=== PATIENT | male | born 1955 | race Caucasian/White ===

== ENCOUNTER 2019-02-27 09:12 | Inpatient (IN) | payer BC ==
[~2019-02-27] VITALS: Ht 170.2 cm; Wt 105.2 kg
[~2019-02-27 09:12] MED LIST: AZITHROMYCIN 250 MG TAB PO SCH
[2019-02-27] MEDS ORDERED: NO MED LIST (09:22)
[2019-02-27 10:45] LABS: BASO % 0.1 % (0.0-1.0); EOS % 0.4 % (0.0-3.0); HEMATOCRIT 35.9 % (42.0-52.0); HEMOGLOBIN 12.9 g/dl (13.5-17.5); LYMPH # 1.3 10^3/uL (1.5-4.5); LYMPH % 11.9 % (24.0-44.0); MEAN CORPUSCULAR HGB CONC 35.9 g/dl (32.0-36.5); MEAN CORPUSCULAR VOLUME 89.1 fl (80.0-96.0); MONO # 0.8 10^3/uL (0.0-0.8); MONO % 7.9 % (0.0-5.0); NEUTROPHILS # 8.5 10^3/uL (1.8-7.7); PLATELET COUNT, AUTOMATED 247 10^3/uL (150-450); RED BLOOD COUNT 4.03 10^6/uL (4.30-6.10); WHITE BLOOD COUNT 10.7 10^3/uL (4.0-10.0)
[2019-02-27] MEDS ORDERED: BISO10TA3 PO (10:49)
[2019-02-27] MEDS ORDERED: IRBE300T10 PO (10:49)
[2019-02-27] MEDS ORDERED: CICL0.7739 TOP (10:49)
[2019-02-27] MEDS ORDERED: AZIT500T2 PO (10:49)
[2019-02-27] MEDS ORDERED: TIMO0.5S39 OU (10:49)
[2019-02-27] MEDS ORDERED: LISI10TA4 PO (10:49)
[2019-02-27] MEDS ORDERED: ASPI81TA85 PO (10:49)
[2019-02-27] MEDS ORDERED: PRED10TA2 PO (10:49)
[2019-02-27] MEDS ORDERED: GEMF600T5 PO (10:49)
[2019-02-27] MEDS ORDERED: AUGM875T28 PO (10:49)
[2019-02-27] MEDS ORDERED: JANU100T PO (10:49)
[2019-02-27] MEDS ORDERED: BIMA01SOL OU (10:49)
[2019-02-27] MEDS ORDERED: AMLO10TA5 PO (10:49)
[2019-02-27] MEDS ORDERED: METF10004 PO (10:50)
[2019-02-27] MEDS: IPRATROPIUM 0.5MG/ALBUTEROL 2.5MG INH SOL UD 3ML (DUONEB)(J7620) NEB PRN ×2 (10:58→20:53)
[2019-02-27 11:08] LABS: INFLUENZA A AMPLIFICATION NEGATIVE (NEGATIVE); INFLUENZA B AMPLIFICATION NEGATIVE (NEGATIVE)
--- NOTE | 2019-02-27 11:11 | REP ---
CHEST X-RAY: TWO VIEWS. HISTORY: Dyspnea and cough. FINDINGS: There is an 11 mm nodular density projecting in the retrosternal clear space on the lateral film. This is not seen on the frontal radiograph. It may be calcified but this cannot be stated with confidence. Lung powell are otherwise clear. Pleural angles are sharp. Heart size is normal. There are old rib fractures on the right inferiorly. Pulmonary vasculature is not increased. There are degenerative changes in the thoracic spine. IMPRESSION: Possible upper lobe nodule visible only on lateral radiograph. Consider chest CT. Old healed rib fractures on the right. Otherwise no acute disease. Electronically Signed by Gianni Colon MD 02/27/2019 08:31 P
[2019-02-27 11:58] LABS: ALBUMIN 3.9 GM/DL (3.2-5.2); ALT/SGPT 27 U/L (12-78); BILIRUBIN,DIRECT 0.2 MG/DL (0.0-0.2); BILIRUBIN,TOTAL 0.4 MG/DL (0.2-1.0); BLOOD UREA NITROGEN 19 MG/DL (7-18); CALCIUM LEVEL 8.2 MG/DL (8.8-10.2); CARBON DIOXIDE LEVEL 21 MEQ/L (21-32); CHLORIDE LEVEL 83 MEQ/L (98-107); CPK CREATINE PHOSPHOKINASE 650 U/L (39-308); FREE T4 1.23 NG/DL (0.76-1.46); GLOMERULAR FILTRATION RATE > 60.0 (>49); GLUCOSE, FASTING 120 MG/DL (70-100); MB/CK RELATIVE INDEX 1.09 (< OR =4); NT-PRO BNP 218 PG/ML (<125); POTASSIUM SERUM 4.4 MEQ/L (3.5-5.1); SODIUM LEVEL 116 MEQ/L (136-145); TOTAL PROTEIN 6.7 GM/DL (6.4-8.2); TROPONIN I < 0.02 NG/ML (< 0.10)
[2019-02-27] MEDS ORDERED: NS 1,000 ML IV SCH (12:15)
[2019-02-27 13:17] LABS: OSMOLALITY SERUM 244 MOSM/KG (280-301)
[2019-02-27] MEDS ORDERED: GLUCOSE 4 GM CHEW TABLET PO PRN (14:00)
[2019-02-27] MEDS ORDERED: GLUCAGON FOR INJ 1 MG VIAL (J1610) SC PRN (14:00)
[2019-02-27] MEDS ORDERED: DEXTROSE 50% 50 ML SYRINGE IV PRN (14:00)
[2019-02-27] MEDS ORDERED: IPRATROPIUM 0.5MG/ALBUTEROL 2.5MG INH SOL UD 3ML (DUONEB)(J7620) NEB PRN (14:00)
[2019-02-27] MEDS: BUDESONIDE 0.5 MG/2 ML INHALATION SUSPENSION INH SCH ×2 (15:12→20:53)
[2019-02-27] MEDS: ALBUTEROL SULFATE 2.5 MG/0.5 ML INH NEB SOLN NEB SCH (15:12)
[2019-02-27] MEDS: ENOXAPARIN 40 MG/0.4 ML SYRINGE (J1650) SC SCH (16:18)
[2019-02-27 16:36] VITALS: BP 156/92
[2019-02-27 16:46] LABS: BLOOD UREA NITROGEN 19 MG/DL (7-18); CREATININE FOR GFR 0.81 MG/DL (0.70-1.30); GLOMERULAR FILTRATION RATE > 60.0 (>49); GLUCOSE, FASTING 124 MG/DL (70-100)
[2019-02-27 16:47] LABS: CALCIUM LEVEL 8.3 MG/DL (8.8-10.2); CARBON DIOXIDE LEVEL 24 MEQ/L (21-32); CHLORIDE LEVEL 82 MEQ/L (98-107); POTASSIUM SERUM 4.8 MEQ/L (3.5-5.1); SODIUM LEVEL 115 MEQ/L (136-145)
[2019-02-27] MEDS ORDERED: SODIUM CHLORIDE 3% 100 ML IV SCH (17:00)
--- NOTE | 2019-02-27 17:10 | REP ---
REASON FOR EXAM: Followup plain radiographic finding of possible right upper lobe nodule seen only on the lateral view. The lack of intravenous contrast for today's CT decreases the sensitivity. There is no mediastinal or hilar adenopathy. There are no pleural or pericardial effusions. The imaged upper abdomen is within normal limits. The imaged osseous structures are within normal limits for the patient's age. Old healed right sided rib fractures are noted. Evaluation of the lung powell show the calcified nodule in the anterior segment of the right upper lobe which measures a centimeter and is responsible for the plain film finding. There are no non-calcified nodules, mass or abnormal opacities. IMPRESSION: Right upper lobe calcified granuloma as described above. Electronically Signed by Korey Sagastume DO 02/28/2019 11:54 A
--- NOTE | 2019-02-27 17:23 | HPEPDOC ---
General Date of Admission Feb 27, 2019 at 13:40 Chief Complaint The patient is a 63-year-old male admitted with a reason for visit of Hyponatre gallo. Source: Patient Exam Limitations: No limitations Associated Symptoms: Cough History of Present Illness 63 year old male with PMH of Diabetes, hypertension, hyperlipidemia, glaucoma presented to the ED for abnormal blood work sent from the PMD's office. Patient says that he has been having a cold for the past 3 to 4 days with dry cough and sinus congestion so went to see his PMD yesterday. He was give augmentin, azithromycin and prednisone and blood work was done. He took 2 doses of each of the medications. This morning he was called by his PMD's office and was tole to come to the ED for low sodium values. Sodium at the PMD's office was 119 yesterday. He was never told that he had any problem with sodium during his previous blood works. He does admit that he likes to drink water. He denies any alcohol usage. He denies any diarrhea or vomiting. In [facility] ED his sodium was found to be 116 so was admitted to the hospitalist service for hyponatremia. Home Medications Scheduled Amlodipine Besylate (Amlodipine Besylate) 10 Mg Tablet, 10 MG PO QHS, (Reported) Amoxicillin/Potassium Clav (Augmentin 875-125 Tablet) 1 Each Tablet, 875 MG PO BID, (Reported) STARTED 02/26 FOR 10 DAYS Aspirin (Aspir 81) 81 Mg Tablet.dr, 81 MG PO QHS, (Reported) Azithromycin (Azithromycin) 500 Mg Tablet, 500 MG PO DAILY, (Reported) STARTED 02/26 FOR 3 DAYS Bimatoprost (Lumigan) 0.01% 2.5ML Drops, 1 DROP OU QHS, (Reported) Bisoprolol/Hydrochlorothiazide (Bisoprolol-Hctz 10-6.25 mg Tab) 1 Each Tablet, 1 TAB PO QHS, (Reported) Ciclopirox Olamine (Ciclopirox) 15 Gm Cream..g., 1 APLCT TOP BID, (Reported) APPLY TO FEET Gemfibrozil (Gemfibrozil) 600 Mg Tablet, 600 MG PO BID, (Reported) Irbesartan (Irbesartan) 300 Mg Tablet, 300 MG PO QHS, (Reported) Lisinopril (Lisinopril) 10 Mg Tablet, 20 MG PO QHS, (Reported) Metformin HCl (Metformin HCl) 1,000 Mg Tablet, 1,000 MG PO BID, (Reported) Prednisone (Prednisone) 10 Mg Tablet, 20 MG PO DAILY, (Reported) STARTED 02/26 FOR 5 DAYS Sitagliptin Phosphate (Januvia) 100 Mg Tablet, 100 MG PO QHS, (Reported) Timolol Maleate (Timolol Maleate) 0.5% 5ML Drop.daily, 1 DROP OU BID, (Reported) Allergies Coded Allergies: No Known Allergies (Unverified , 02/27/19) Past Medical History Medical History Diabetes, Hypertension, Hyperlipidemia. Surgical History None Social History * Smoker: Denies Alcohol: Denies Drugs: denies Review of Systems Constitutional: Denies: Chills, Fever, Night Sweats Eyes: Denies: Pain, Vision change ENT: Reports: Sinus Congestion, Sore Throat Skin: Denies: Rash, Lesions, Breakdown Pulmonary: Reports: Dyspnea, Cough Cardiovascular: Reports: Orthopnea; Denies: Chest Pain, Palpitations, Paroxysmal Noc. Dyspnea, Lt Headedness Gastrointestinal: Denies: Nausea, Vomiting, Abdominal Pain, Diarrhea Genitourinary: Denies: Dysuria, Frequency, Incontinence, Retention Musculoskeletal: Denies: Neck Pain, Back Pain, Joint Pain, Muscle Pain, Spasms Physical Examination General Exam: Positive: Alert, Cooperative, No Acute Distress Eye Exam: Positive: PERRLA, Conjunctiva & lids normal, EOMI; Negative: Sclera icteric ENT Exam: Positive: Atraumatic, Mucous membr. moist/pink Chest Exam: Positive: Rhonchi, Wheezing Heart Exam: Positive: Rate Normal, Bradycardic, Regular Rhythm, Normal S1; Negative: Irregular Rhythm, Normal S2, Gallops, Murmurs, Rubs Abdomen Exam: Positive: Normal bowel sounds, Soft, Other (obese, protuberant); Negative: Tenderness, Hepatospenomegaly Extremity Exam: Positive: Edema (minimal trace edema.), Normal pulses; Negative: Clubbing, Cyanosis Skin Exam: Positive: Nl turgor and temperature; Negative: Breakdown, Lesion Neuro Exam: Positive: Normal Speech Psych Exam: Positive: Mental status NL, Memory Intact, Oriented x 3 Vital Signs Vital Signs Date Time Temp Pulse Resp B/P (MAP) Pulse Ox O2 Delivery O2 Flow Rate FiO2 4/23/19 15:31 98.0 18 130/61 (84) 02/27/19 15:30 55 97 02/27/19 09:14 Room Air Laboratory Data Labs 24H Laboratory Tests 2 02/27/19 09:48: Urine Random Osmolality 888H, Urine Random Creatinine 122.0, Urine Random Sodium 89 02/27/19 10:04: Immature Granulocyte % (Auto) 0.7, White Blood Count 10.7H, Red Blood Count 4.03L, Hemoglobin 12.9L, Hematocrit 35.9L, Mean Corpuscular Volume 89.1, Mean Corpuscular Hemoglobin 32.0, Mean Corpuscular Hemoglobin Concent 35.9, Red Cell Distribution Width 12.5, Platelet Count 247, Neutrophils (%) (Auto) 79.0H, Lymphocytes (%) (Auto) 11.9L, Monocytes (%) (Auto) 7.9H, Eosinophils (%) (Auto) 0.4, Basophils (%) (Auto) 0.1, Neutrophils # (Auto) 8.5H, Lymphocytes # (Auto) 1.3L, Monocytes # (Auto) 0.8, Eosinophils # (Auto) 0.0, Basophils # (Auto) 0.0, Nucleated Red Blood Cells % (auto) 0.0, Anion Gap 12, Glomerular Filtration Rate > 60.0, Osmolality 244L, Lactic Acid Level 3.1*H, Uric Acid 3.0L, Calcium Level 8.2L, Aspartate Amino Transf (AST/SGOT) 21, Alanine Aminotransferase (ALT/SGPT) 27, Alkaline Phosphatase 45, Total Bilirubin 0.4, Direct Bilirubin 0.2, Total Creatine Kinase 650H, Creatine Kinase MB 7.0H, Creatine Kinase MB Relative Index 1.09, Troponin I < 0.02, TS-Oup-U-Type Natriuretic Peptide 218H, Total Protein 6.7, Albumin 3.9, Albumin/Globulin Ratio 1.39, Thyroid Stimulating Hormone (TSH) 1.350, Free Thyroxine 1.23 02/27/19 10:18: Influenza Type A (RT-PCR) NEGATIVE, Influenza Type B (RT-PCR) NEGATIVE 02/27/19 15:54: Anion Gap 9, Glomerular Filtration Rate > 60.0, Calcium Level 8.3L, Lactic Acid Followup at 4 Hours 1.4, Blood Urea Nitrogen 19H, Creatinine 0.81, Sodium Level 115*L, Potassium Level 4.8, Chloride Level 82L, Carbon Dioxide Level 24 CBC/BMP Laboratory Tests 02/27/19 10:04 Red Blood Count 4.03 L, Mean Corpuscular Volume 89.1, Mean Corpuscular Hemoglobin 32.0, Mean Corpuscular Hemoglobin Concent 35.9, Red Cell Distribution Width 12.5, Neutrophils (%) (Auto) 79.0 H, Lymphocytes (%) (Auto) 11.9 L, Monocytes (%) (Auto) 7.9 H, Eosinophils (%) (Auto) 0.4, Basophils (%) (Auto) 0.1, Neutrophils # (Auto) 8.5 H, Lymphocytes # (Auto) 1.3 L, Monocytes # (Auto) 0.8, Eosinophils # (Auto) 0.0, Basophils # (Auto) 0.0 02/27/19 15:54 Calcium Level 8.3 L Microbiology Microbiology 02/27/19 Blood Culture, Received Pending 02/27/19 Blood Culture, Received Pending 02/27/19 Gram Stain, Received Pending 02/27/19 Sputum Culture, Received Pending Assessment/Plan 63 year old male with PMH of Diabetes, hypertension, hyperlipidemia, glaucoma presented to the ED for abnormal blood work sent from the PMD's office. Patient says that he has been having a cold for the past 3 to 4 days with dry cough and sinus congestion so went to see his PMD yesterday. He was give augmentin, azithromycin and prednisone and blood work was done. He took 2 doses of each of the medications. This morning he was called by his PMD's office and was tole to come to the ED for low sodium values. Sodium at the PMD's office was 119 yesterday. He was never told that he had any problem with sodium during his previous blood works. He does admit that he likes to drink water. He denies any alcohol usage. He denies any diarrhea or vomiting. In [facility] ED his sodium was found to be 116 so was admitted to the hospitalist service for hyponatremia. Euvolemic hyponatremia with high urine osmolality and high urine sodium and low uric acid in blood indicates high probability for SIADH on the back ground of being on lisinopril, irbesartan and HCTZ. patient also has a tendency to drink excess water will put the patient on fluid restriction, regular diet consult Nephrology will probably need hypertonic saline BMP Q 3 to 4 hours. Respiratory tract infection / Acute bronchitis with post infectious bronchospasm possibly viral, may have secondary baceterial infection also. flu is negative will check resp panel continue budesonide, albuterol will not give prednisone at present. Diabetes will continue januvia, hold metformin will give lispro as per sliding scale Glaucoma continue home eye drops. Hypertension continue amlodipine and bisoprolol for now will hold ACEI and ARBs. Hyperlipidemia continue home meds Obesity will place patient on GILLIAN protocol Possible lung nodule seen on CXR will get CT chest. DVT prophylaxis ordered. Plan / VTE VTE Prophylaxis Ordered?: Yes SONNY DUKE MD Feb 27, 2019 17:23
[2019-02-27] MEDS: HumaLOG INSULIN (NovoLOG) PER UNIT SC SCH ×2 (18:43→20:20)
[2019-02-27 19:23] VITALS: BP 154/94
[2019-02-27 19:26] LABS: GLUCOSE, FASTING 109 MG/DL (70-100)
[2019-02-27 19:27] LABS: BLOOD UREA NITROGEN 17 MG/DL (7-18); CREATININE FOR GFR 0.74 MG/DL (0.70-1.30); GLOMERULAR FILTRATION RATE > 60.0 (>49)
[2019-02-27 19:28] LABS: CARBON DIOXIDE LEVEL 23 MEQ/L (21-32); CHLORIDE LEVEL 82 MEQ/L (98-107); POTASSIUM SERUM 4.5 MEQ/L (3.5-5.1); SODIUM LEVEL 114 MEQ/L (136-145)
[2019-02-27 20:00] VITALS: BP 139/71
[2019-02-27] MEDS: ASPIRIN 81 MG ENTERIC TAB PO SCH (20:13)
[2019-02-27] MEDS: amLODIPine 10 MG TAB PO SCH (20:14)
[2019-02-27] MEDS: GEMFIBROZIL 600 MG TAB PO SCH (20:14)
[2019-02-27] MEDS: BISOPROLOL FUMARATE 10 MG TAB PO SCH (20:15)
[2019-02-27] MEDS: SITagliptin 50 MG TAB (JANUVIA) PO SCH (20:15)
[2019-02-27 22:00] VITALS: BP 115/70
--- NOTE | 2019-02-27 23:19 | ECGEPIP ---
Stationary ECG Study [facility] - ED Test Date: 2019-02-27 Pat Name: SUDHIR DELGADO Department: Room: - Gender: M Education Paraprofessional: : [id number] Requested By: UTE Canas PA-C Order Number: [id number] Reading MD: Gus Aguila Measurements Intervals [place] Rate: 57 P: 25 RI: 136 QRS: 54 QRSD: 96 T: 61 QT: 415 QTc: 407 Interpretive Statements SINUS BRADYCARDIA WITH SINUS ARRHYTHMIA LOW QRS VOLTAGE IN PRECORDIAL LEADS BENIGN EARLY REPOLARIZATION NO PRIORS FOR COMPARISON Electronically Signed On 02-27-2019 23:18:43 EDT by Gus Aguila
[2019-02-28] VITALS (9 sets, daily range): BP systolic 113–156; BP diastolic 58–77
[2019-02-28] MEDS: SODIUM CHLORIDE 1 GM TAB PO SCH ×3 (02:52→21:44)
[2019-02-28 04:01] LABS: BASO % 0.1 % (0.0-1.0); EOS % 0.4 % (0.0-3.0); HEMATOCRIT 35.4 % (42.0-52.0); HEMOGLOBIN 12.6 g/dl (13.5-17.5); LYMPH # 1.9 10^3/uL (1.5-4.5); LYMPH % 23.4 % (24.0-44.0); MEAN CORPUSCULAR HEMOGLOBIN 31.5 pg (27.0-33.0); MEAN CORPUSCULAR HGB CONC 35.6 g/dl (32.0-36.5); MEAN CORPUSCULAR VOLUME 88.5 fl (80.0-96.0); MONO % 11.8 % (0.0-5.0); NEUTROPHILS # 5.2 10^3/uL (1.8-7.7); NEUTROPHILS % 64.1 % (36.0-66.0); PLATELET COUNT, AUTOMATED 220 10^3/uL (150-450); WHITE BLOOD COUNT 8.1 10^3/uL (4.0-10.0)
[2019-02-28 04:33] LABS: BLOOD UREA NITROGEN 18 MG/DL (7-18); CALCIUM LEVEL 7.8 MG/DL (8.8-10.2); CARBON DIOXIDE LEVEL 25 MEQ/L (21-32); CHLORIDE LEVEL 84 MEQ/L (98-107); CREATININE FOR GFR 0.72 MG/DL (0.70-1.30); GLOMERULAR FILTRATION RATE > 60.0 (>49); GLUCOSE, FASTING 122 MG/DL (70-100); POTASSIUM SERUM 3.7 MEQ/L (3.5-5.1); SODIUM LEVEL 117 MEQ/L (136-145)
[2019-02-28] MEDS ORDERED: SODIUM CHLORIDE 3% 100 ML IV ONE (05:00)
[2019-02-28] MEDS ORDERED: FUROSEMIDE 20 MG/2 ML VIAL (J1940) IV ONE (08:00)
[2019-02-28] MEDS: ENOXAPARIN 40 MG/0.4 ML SYRINGE (J1650) SC SCH (08:08)
[2019-02-28] MEDS: AZITHROMYCIN 250 MG TAB PO SCH (08:08)
[2019-02-28] MEDS: HumaLOG INSULIN (NovoLOG) PER UNIT SC SCH ×4 (08:09→21:00)
[2019-02-28] MEDS: GEMFIBROZIL 600 MG TAB PO SCH ×2 (08:09→21:43)
[2019-02-28] MEDS: ALBUTEROL SULFATE 2.5 MG/0.5 ML INH NEB SOLN NEB SCH ×4 (08:43→20:22)
[2019-02-28] MEDS: BUDESONIDE 0.5 MG/2 ML INHALATION SUSPENSION INH SCH ×2 (08:43→20:22)
[2019-02-28 09:44] LABS: CORTISOL AM 30.3 UG/DL (4.3-22.4)
--- NOTE | 2019-02-28 10:53 | IPNPDOC ---
Subjective Date Seen The patient was seen on 02/28/19. Subjective Chief Complaint/HPI Abnormal lab work, cough, wheezing Events since last encounter Patient had a good night , did not need any oxygen overnight. Does not complain of any SOb. Does have bouts of dry hacking cough. No fever of chills, no nausea or vomiting or diarrhea. Objective Physical Examination General Exam: Positive: Alert, Cooperative, No Acute Distress Eye Exam: Positive: PERRLA, Conjunctiva & lids normal, EOMI; Negative: Sclera icteric ENT Exam: Positive: Atraumatic, Mucous membr. moist/pink Chest Exam: Positive: Rhonchi, Wheezing Heart Exam: Positive: Rate Normal, Bradycardic, Regular Rhythm, Normal S1; Negative: Irregular Rhythm, Normal S2, Gallops, Murmurs, Rubs Abdomen Exam: Positive: Normal bowel sounds, Soft, Other (obese, protuberant); Negative: Tenderness, Hepatospenomegaly Extremity Exam: Positive: Edema (minimal trace edema.), Normal pulses; Negative: Clubbing, Cyanosis Skin Exam: Positive: Nl turgor and temperature; Negative: Breakdown, Lesion Neuro Exam: Positive: Normal Speech Psych Exam: Positive: Mental status NL, Memory Intact, Oriented x 3 A-FIB/CHADSVASC A-FIB History Current/History of A-Fib/PAF?: No Assessment /Plan Assessment 63 year old male with PMH of Diabetes, hypertension, hyperlipidemia, glaucoma presented to the ED for abnormal blood work sent from the PMD's office. Patient says that he has been having a cold for the past 3 to 4 days with dry cough and sinus congestion so went to see his PMD yesterday. He was give augmentin, azithromycin and prednisone and blood work was done. He took 2 doses of each of the medications. This morning he was called by his PMD's office and was tole to come to the ED for low sodium values. Sodium at the PMD's office was 119 yesterday. He was never told that he had any problem with sodium during his previous blood works. He does admit that he likes to drink water. He denies any alcohol usage. He denies any diarrhea or vomiting. In [facility] ED his sodium was found to be 116 so was admitted to the hospitalist service for hyponatremia. Euvolemic hyponatremia Sodium up from 116 to 119 this am. with high urine osmolality and high urine sodium and low uric acid in blood indicates high probability for SIADH on the back ground of being on lisinopril, irbesartan and HCTZ. cortisol and TSH normal. continue on fluid restriction, regular diet On lasix, oral salt tabs and hypertonic saline. BMP Q 3 to 4 hours. Respiratory tract infection / Acute bronchitis with post infectious bronchospasm RSV infection may have secondary bacterial infection also. flu is negative continue budesonide, albuterol will give prednisone Diabetes will continue januvia, hold metformin will give lispro as per sliding scale Glaucoma continue home eye drops. Hypertension continue amlodipine and bisoprolol for now will hold ACEI and ARBs. Hyperlipidemia continue home meds Obesity will place patient on GILLIAN protocol Lung nodule right upper lobe calcified granuloma 1 cm in size. DVT prophylaxis ordered. Plan/VTE VTE Prophylaxis Ordered?: Yes VS, I&O, 24H, Fishbone Vital Signs/I&O Vital Signs Date Time Temp Pulse Resp B/P (MAP) Pulse Ox O2 Delivery O2 Flow Rate FiO2 02/28/19 08:43 60 02/28/19 06:00 20 131/63 (85) 96 02/28/19 04:00 97.2 02/27/19 09:14 Room Air I&O- Last 24 Hours up to 6 AM 02/28/19 06:00 Intake Total 640 ml Output Total 600 ml Balance 40 ml Laboratory Data 24H LABS Laboratory Tests 2 02/27/19 15:54: Anion Gap 9, Glomerular Filtration Rate > 60.0, Lactic Acid Followup at 4 Hours 1.4, Blood Urea Nitrogen 19H, Creatinine 0.81, Sodium Level 115*L, Potassium Level 4.8, Chloride Level 82L, Carbon Dioxide Level 24, Calcium Level 8.3L 02/27/19 17:51: Bedside Glucose (Misc Panel) 131H 02/27/19 18:50: Anion Gap 9, Glomerular Filtration Rate > 60.0, Blood Urea Nitrogen 17, Creatinine 0.74, Sodium Level 114*L, Potassium Level 4.5, Chloride Level 82L, Carbon Dioxide Level 23, Calcium Level 8.0L 02/27/19 20:20: Bedside Glucose (Misc Panel) 162H 02/28/19 03:54: Immature Granulocyte % (Auto) 0.2, White Blood Count 8.1, Red Blood Count 4.00L, Hemoglobin 12.6L, Hematocrit 35.4L, Mean Corpuscular Volume 88.5, Mean Corpuscular Hemoglobin 31.5, Mean Corpuscular Hemoglobin Concent 35.6, Red Cell Distribution Width 12.3, Platelet Count 220, Neutrophils (%) (Auto) 64.1, Lymphocytes (%) (Auto) 23.4L, Monocytes (%) (Auto) 11.8H, Eosinophils (%) (Auto) 0.4, Basophils (%) (Auto) 0.1, Neutrophils # (Auto) 5.2, Lymphocytes # (Auto) 1.9, Monocytes # (Auto) 1.0H, Eosinophils # (Auto) 0.0, Basophils # (Auto) 0.0, Nucleated Red Blood Cells % (auto) 0.0, Anion Gap 8, Glomerular Filtration Rate > 60.0, Blood Urea Nitrogen 18, Creatinine 0.72, Sodium Level 117*L, Potassium Level 3.7, Chloride Level 84L, Carbon Dioxide Level 25, Calcium Level 7.8L 02/28/19 07:00: Cortisol AM Sample 30.3H CBC/BMP Laboratory Tests 02/27/19 15:54 Calcium Level 8.3 L 02/27/19 18:50 Calcium Level 8.0 L 02/27/19 21:57 02/28/19 01:06 02/28/19 03:54 Red Blood Count 4.00 L, Mean Corpuscular Volume 88.5, Mean Corpuscular Hemoglobin 31.5, Mean Corpuscular Hemoglobin Concent 35.6, Red Cell Distribution Width 12.3, Neutrophils (%) (Auto) 64.1, Lymphocytes (%) (Auto) 23.4 L, Monocytes (%) (Auto) 11.8 H, Eosinophils (%) (Auto) 0.4, Basophils (%) (Auto) 0.1, Neutrophils # (Auto) 5.2, Lymphocytes # (Auto) 1.9, Monocytes # (Auto) 1.0 H, Eosinophils # (Auto) 0.0, Basophils # (Auto) 0.0, Calcium Level 7.8 L 02/28/19 07:00 02/28/19 10:05 Microbiology Microbiology 02/27/19 Blood Culture, Received Pending 02/27/19 Blood Culture - Preliminary, Resulted No growth after 24 hours . All specim... 02/27/19 Respiratory Virus Panel (PCR) (LISBET) - Final, Complete Respiratory Syncytial Virus 02/27/19 Gram Stain - Final, Complete 02/27/19 Sputum Culture - Final, Complete SONNY DUKE MD Feb 28, 2019 10:53
[2019-02-28] MEDS ORDERED: BENZONATATE 100 MG CAP PO PRN (11:00)
[2019-02-28] MEDS ORDERED: SODIUM CHLORIDE 3% 200 ML IV ONE (11:00)
[2019-02-28 11:21] LABS: OSMOLALITY URINE 426 MOSM/KG (500-800)
[2019-02-28 11:23] LABS: SODIUM,RANDOM URINE 105 MEQ/L
[2019-02-28] MEDS ORDERED: SODIUM CHLORIDE 1 GM TAB PO ONE (12:00)
--- NOTE | 2019-02-28 12:52 | CR ---
DATE OF CONSULTATION: 02/27/2019 REQUESTING PHYSICIAN: Dr. Raisa Washington REASON FOR CONSULTATION: Management of severe hyponatremia. HISTORY OF PRESENT ILLNESS: Ham Stone is a 63-year-old male with a past medical history of hypertension, dyslipidemia, glaucoma, and non-insulin dependent type 2 diabetes mellitus. Patient presented to the emergency room (ER) after being sent by his primary care physician for abnormal blood work. He tells me he was in his usual state of health until he started having cold symptoms for the past 3-4 days with a dry cough, sinus congestion, and wheeze. He saw his primary care provider, Marcos Younger, yesterday and he was started on antibiotics and oral steroids and blood works were drawn. This morning he was called by his primary care's office and was told to come to the emergency room for hyponatremia (sodium level 119). In the emergency room today his sodium level was found to be 116. The patient denies any prior history of hyponatremia. Reports that he has been on hydrochlorothiazide for some time and that it is not a new medication. Reports that he is an avid water drinker. His chest x-ray was found to be abnormal with a lung nodule. His brother and sister are present at the bedside and they deny any change in the patient's behavior or mentation. PAST MEDICAL HISTORY: As mentioned above. Non-insulin dependent type 2 diabetes, hypertension, dyslipidemia, glaucoma, obesity. PAST SURGICAL HISTORY: None reported. ALLERGIES: No known drug allergies. SOCIAL HISTORY: He lives with his two brothers. His sister comes by on a regular basis to help with medication administration. He denies any history of smoking, alcohol, or drugs. REVIEW OF SYSTEMS: CONSTITUTIONAL: He denies fevers or chills. EYES: Denies visual changes or blurring. ENT: He reports sinus congestion and rhinorrhea now improving. SKIN: He denies rashes or lesions. PULMONARY: He reports dyspnea and dry cough. CARDIOVASCULAR: He reports no chest pain or dyspnea. GASTROINTESTINAL: He denies nausea, vomiting, diarrhea. : He denies dysuria or hematuria. ENDOCRINE: He denies thyroid disorders. He reports non-insulin dependent diabetes. MUSCULOSKELETAL: He denies arthralgias or myalgias. NEUROLOGIC: He denies seizures or syncope. His remainder of review of systems are negative. Home medications reviewed and include: Bisoprolol, hydrochlorothiazide, amlodipine, Augmentin, aspirin, azithromycin, gemfibrozil, irbesartan, lisinopril, metformin, Januvia. PHYSICAL EXAMINATION: VITAL SIGNS: Temperature 98.7, pulse 59, respiratory rate 22, blood pressure 156/92, saturating 97% on room air. GENERAL: Patient is seen in the emergency room lying in the stretcher, obese male, in no acute distress. Family present at the bedside. HEENT: Extraocular muscles are intact. Tongue is moist. NECK: Supple. Jugular veins are not elevated. CARDIAC: S1, S2, mild bradycardia. Trace edema in the peripheries. LUNGS: Scattered rhonchus with expiratory wheeze bilaterally. No tachypnea or accessory muscle use. ABDOMEN: Soft, nontender, there are bowel sounds. EXTREMITIES: Negative for clubbing and cyanosis and show trace edema. SKIN: Normal turgor and temperature. NEUROLOGIC: Patient is oriented times three. No focal deficits. Cooperative and interactive and conversational. LABORATORY DATA: White count 10.7, hemoglobin 12.9, platelet 247, TSH 1.3, sodium 116, bicarbonate 21, BUN 19, potassium 4.4, creatinine 0.9, uric acid 3.0, BNP 218, urine osmolality 888, urine random sodium 89, serum osmolality 244. Respiratory panel positive for RSV. Chest x-ray showed a pulmonary nodule. CT chest without contrast shows a right upper lobe calcified granuloma. INPATIENT MEDICATIONS: - Patient is receiving albuterol as needed - amlodipine 10 mg by mouth at bedtime - aspirin 81 mg by mouth at bedtime - Zithromax 500 mg by mouth daily - bisoprolol 10 mg by mouth at bedtime - Pulmicort 0.5 mg inhaled - Lovenox 40 mg subcutaneous daily - Lopid 600 mg by mouth twice a day - insulin sliding scale - Januvia 100 mg by mouth at bedtime - 100 mL of hypertonic saline PROBLEMS: 1. Euvolemic hypo-osmolar hyponatremia with markedly high urine osmolality of almost 900 per liter. Hyponatremia is felt to be secondary to antidiuretic hormone mediated by pneumonic process and further exacerbated by use of hydrochlorothiazide and avid water intake. Given the significantly high urine osmolality and the down trending serum sodium we will give the patient 100 mL of hypertonic normal saline over 5 hours. Continue sodium monitoring every 3 hours. Patient is started on a 1.5 liter fluid restriction. Hydrochlorothiazide has been appropriately discontinued and he should stay off of it going forward. The underlying pneumonic process is being treated with antibiotics and steroids. This TSH was appropriate. A.m. cortisol level is requested. Chest x-ray showed a lung nodule and a followup CT chest revealed a calcified granuloma. No occult malignancy noted. Goal correction is 4-6 mEq in the next 24 hours. 2. Hypertension. Blood pressures are reasonable. Continue amlodipine and bisoprolol and hydrochlorothiazide should be added to his list of allergies and he should not continue on hydrochlorothiazide after this admission due to the severe hyponatremia. 3. Respiratory syncytial virus. The patient is receiving support care as per the primary team. As a pneumonic process improves his urine osmolality is expected to decrease as well. 4. Thank you for involving me in the care of Mr. Ham Stone. I will be happy to follow him along with you. I have directed the intensive care unit (ICU) to call me with each every 3 hour sodium level so that management of his hyponatremia can be further directed to avoid over correction.
[2019-02-28] MEDS: predniSONE 20 MG TAB PO SCH (17:13)
[2019-02-28 20:23] LABS: BLOOD UREA NITROGEN 19 MG/DL (7-18); CALCIUM LEVEL 8.3 MG/DL (8.8-10.2); CARBON DIOXIDE LEVEL 25 MEQ/L (21-32); CHLORIDE LEVEL 88 MEQ/L (98-107); CREATININE FOR GFR 0.93 MG/DL (0.70-1.30); GLOMERULAR FILTRATION RATE > 60.0 (>49); GLUCOSE, FASTING 140 MG/DL (70-100); POTASSIUM SERUM 3.9 MEQ/L (3.5-5.1); SODIUM LEVEL 122 MEQ/L (136-145)
[2019-02-28] MEDS: BISOPROLOL FUMARATE 10 MG TAB PO SCH (21:00)
[2019-02-28] MEDS: amLODIPine 10 MG TAB PO SCH ×2 (21:00→21:43)
[2019-02-28] MEDS: FUROSEMIDE 20 MG/2 ML VIAL (J1940) IV SCH (21:43)
[2019-02-28] MEDS: ASPIRIN 81 MG ENTERIC TAB PO SCH (21:44)
[2019-02-28] MEDS: SITagliptin 50 MG TAB (JANUVIA) PO SCH (21:44)
[2019-03-01] VITALS: BP 152/77
[2019-03-01 00:54] LABS: BLOOD UREA NITROGEN 18 MG/DL (7-18); CALCIUM LEVEL 8.2 MG/DL (8.8-10.2); CARBON DIOXIDE LEVEL 27 MEQ/L (21-32); CHLORIDE LEVEL 89 MEQ/L (98-107); CREATININE FOR GFR 0.92 MG/DL (0.70-1.30); GLOMERULAR FILTRATION RATE > 60.0 (>49); GLUCOSE, FASTING 142 MG/DL (70-100); POTASSIUM SERUM 4.2 MEQ/L (3.5-5.1); SODIUM LEVEL 123 MEQ/L (136-145)
[2019-03-01 04:00] VITALS: BP 158/77
[2019-03-01 08:00] VITALS: BP 141/68
[2019-03-01 08:05] LABS: BASO % 0.1 % (0.0-1.0); EOS % 0.1 % (0.0-3.0); HEMATOCRIT 36.1 % (42.0-52.0); HEMOGLOBIN 12.8 g/dl (13.5-17.5); LYMPH # 1.3 10^3/uL (1.5-4.5); LYMPH % 13.4 % (24.0-44.0); MEAN CORPUSCULAR HEMOGLOBIN 31.5 pg (27.0-33.0); MEAN CORPUSCULAR HGB CONC 35.5 g/dl (32.0-36.5); MEAN CORPUSCULAR VOLUME 88.9 fl (80.0-96.0); MONO # 0.8 10^3/uL (0.0-0.8); MONO % 8.5 % (0.0-5.0); NEUTROPHILS # 7.6 10^3/uL (1.8-7.7); NEUTROPHILS % 77.3 % (36.0-66.0); PLATELET COUNT, AUTOMATED 250 10^3/uL (150-450); RED BLOOD COUNT 4.06 10^6/uL (4.30-6.10); WHITE BLOOD COUNT 9.9 10^3/uL (4.0-10.0)
[2019-03-01] MEDS: ALBUTEROL SULFATE 2.5 MG/0.5 ML INH NEB SOLN NEB SCH ×2 (08:15→14:47)
[2019-03-01] MEDS: BUDESONIDE 0.5 MG/2 ML INHALATION SUSPENSION INH SCH ×2 (08:15→20:00)
[2019-03-01 08:23] LABS: BLOOD UREA NITROGEN 16 MG/DL (7-18); CALCIUM LEVEL 8.2 MG/DL (8.8-10.2); CARBON DIOXIDE LEVEL 26 MEQ/L (21-32); CHLORIDE LEVEL 88 MEQ/L (98-107); CREATININE FOR GFR 0.74 MG/DL (0.70-1.30); GLOMERULAR FILTRATION RATE > 60.0 (>49); GLUCOSE, FASTING 125 MG/DL (70-100); POTASSIUM SERUM 3.7 MEQ/L (3.5-5.1); SODIUM LEVEL 121 MEQ/L (136-145)
[2019-03-01] MEDS: HumaLOG INSULIN (NovoLOG) PER UNIT SC SCH ×4 (09:04→21:00)
[2019-03-01] MEDS: AZITHROMYCIN 250 MG TAB PO SCH (09:05)
[2019-03-01] MEDS: GEMFIBROZIL 600 MG TAB PO SCH ×2 (09:05→21:22)
[2019-03-01] MEDS: SODIUM CHLORIDE 1 GM TAB PO SCH ×2 (09:05→21:00)
[2019-03-01] MEDS: ENOXAPARIN 40 MG/0.4 ML SYRINGE (J1650) SC SCH (09:05)
[2019-03-01] MEDS: predniSONE 20 MG TAB PO SCH (09:05)
[2019-03-01] MEDS: FUROSEMIDE 20 MG/2 ML VIAL (J1940) IV SCH ×2 (09:05→16:58)
[2019-03-01] MEDS ORDERED: SODIUM CHLORIDE 3% 200 ML IV SCH (10:00)
[2019-03-01] MEDS ORDERED: POTASSIUM CHLORIDE 10 MEQ SR TABLET PO ONE (10:15)
[2019-03-01 11:19] LABS: SODIUM,RANDOM URINE 94 MEQ/L
[2019-03-01 11:21] LABS: OSMOLALITY URINE 660 MOSM/KG (500-800)
[2019-03-01 12:00] VITALS: BP 138/75
[2019-03-01] MEDS ORDERED: SENOKOT S TAB PO PRN (12:00)
--- NOTE | 2019-03-01 12:23 | IPNPDOC ---
Subjective Date Seen The patient was seen on 03/01/19. Objective Physical Examination General Exam: Positive: Alert, Cooperative, No Acute Distress Eye Exam: Positive: PERRLA, Conjunctiva & lids normal, EOMI; Negative: Sclera icteric ENT Exam: Positive: Atraumatic, Mucous membr. moist/pink Chest Exam: Positive: Rhonchi, Wheezing Heart Exam: Positive: Rate Normal, Bradycardic, Regular Rhythm, Normal S1; Negative: Irregular Rhythm, Normal S2, Gallops, Murmurs, Rubs Abdomen Exam: Positive: Normal bowel sounds, Soft, Other (obese, protuberant); Negative: Tenderness, Hepatospenomegaly Extremity Exam: Positive: Edema (minimal trace edema.), Normal pulses; Negative: Clubbing, Cyanosis Skin Exam: Positive: Nl turgor and temperature; Negative: Breakdown, Lesion Neuro Exam: Positive: Normal Speech Psych Exam: Positive: Mental status NL, Memory Intact, Oriented x 3 Assessment /Plan Assessment 63 year old male with PMH of Diabetes, hypertension, hyperlipidemia, glaucoma presented to the ED for abnormal blood work sent from the PMD's office. Patient says that he has been having a cold for the past 3 to 4 days with dry cough and sinus congestion so went to see his PMD yesterday. He was give Augmentin, azithromycin and prednisone and blood work was done. He took 2 doses of each of the medications. This morning he was called by his PMD's office and was tole to come to the ED for low sodium values. Sodium at the PMD's office was 119 yesterday. He was never told that he had any problem with sodium during his previous blood works. He does admit that he likes to drink water. He denies any alcohol usage. He denies any diarrhea or vomiting. In the ED his sodium was foun d to be 116 so was admitted to the hospitalist service for hyponatremia. Euvolemic hyponatremia Sodium up from 116 to 119 this am. with high urine osmolality and high urine sodium and low uric acid in blood indicates high probability for SIADH on the back ground of being on lisinopril, irbesartan and HCTZ. cortisol and TSH normal. continue on fluid restriction, regular diet On lasix, oral salt tabs and hypertonic saline. Check sodium levels every 6 hours. Respiratory tract infection / Acute bronchitis with post infectious bronchospasm RSV infection may have secondary bacterial infection also. flu is negative continue budesonide, albuterol will give prednisone Diabetes will continue januvia, hold metformin will give lispro as per sliding scale Glaucoma continue home eye drops. Hypertension continue amlodipine and bisoprolol for now will hold ACEI and ARBs. Hyperlipidemia continue home meds Obesity will place patient on GILLIAN protocol Lung nodule right upper lobe calcified granuloma 1 cm in size. DVT prophylaxis ordered. Plan/VTE VTE Prophylaxis Ordered?: Yes VS, I&O, 24H, Fishbone Vital Signs/I&O Vital Signs Date Time Temp Pulse Resp B/P (MAP) Pulse Ox O2 Delivery O2 Flow Rate FiO2 03/01/19 08:00 98.5 70 20 141/68 (92) 94 03/01/19 07:00 Room Air I&O- Last 24 Hours up to 6 AM 03/01/19 06:00 Intake Total 1200 ml Output Total 1425 ml Balance -225 ml Laboratory Data 24H LABS Laboratory Tests 2 02/28/19 16:45: Bedside Glucose (Misc Panel) 122H 02/28/19 19:43: Anion Gap 9, Glomerular Filtration Rate > 60.0, Blood Urea Nitrogen 19H, Creatinine 0.93, Sodium Level 122L, Potassium Level 3.9, Chloride Level 88L, Carbon Dioxide Level 25, Calcium Level 8.3L 02/28/19 20:14: Bedside Glucose (Misc Panel) 134H 03/01/19 00:00: Anion Gap 7L, Glomerular Filtration Rate > 60.0, Blood Urea Nitrogen 18, Creatinine 0.92, Sodium Level 123L, Potassium Level 4.2, Chloride Level 89L, Carbon Dioxide Level 27, Calcium Level 8.2L 03/01/19 07:39: Immature Granulocyte % (Auto) 0.6, White Blood Count 9.9, Red Blood Count 4.06L, Hemoglobin 12.8L, Hematocrit 36.1L, Mean Corpuscular Volume 88.9, Mean Corpuscular Hemoglobin 31.5, Mean Corpuscular Hemoglobin Concent 35.5, Red Cell Distribution Width 12.7, Platelet Count 250, Neutrophils (%) (Auto) 77.3H, Lymphocytes (%) (Auto) 13.4L, Monocytes (%) (Auto) 8.5H, Eosinophils (%) (Auto) 0.1, Basophils (%) (Auto) 0.1, Neutrophils # (Auto) 7.6, Lymphocytes # (Auto) 1.3L, Monocytes # (Auto) 0.8, Eosinophils # (Auto) 0.0, Basophils # (Auto) 0.0, Nucleated Red Blood Cells % (auto) 0.0, Anion Gap 7L, Glomerular Filtration Rate > 60.0, Blood Urea Nitrogen 16, Creatinine 0.74, Sodium Level 121L, Potassium Level 3.7, Chloride Level 88L, Carbon Dioxide Level 26, Calcium Level 8.2L 03/01/19 10:27: Urine Random Osmolality 660, Urine Random Sodium 94 03/01/19 11:47: Bedside Glucose (Misc Panel) 157H CBC/BMP Laboratory Tests 02/28/19 12:57 02/28/19 19:43 Calcium Level 8.3 L 03/01/19 00:00 Calcium Level 8.2 L 03/01/19 04:18 03/01/19 07:39 Red Blood Count 4.06 L, Mean Corpuscular Volume 88.9, Mean Corpuscular Hemoglobin 31.5, Mean Corpuscular Hemoglobin Concent 35.5, Red Cell Distribution Width 12.7, Neutrophils (%) (Auto) 77.3 H, Lymphocytes (%) (Auto) 13.4 L, Monocytes (%) (Auto) 8.5 H, Eosinophils (%) (Auto) 0.1, Basophils (%) (Auto) 0.1, Neutrophils # (Auto) 7.6, Lymphocytes # (Auto) 1.3 L, Monocytes # (Auto) 0.8, Eosinophils # (Auto) 0.0, Basophils # (Auto) 0.0, Calcium Level 8.2 L 03/01/19 11:36 Microbiology Microbiology 02/27/19 Blood Culture - Preliminary, Resulted No Growth after 48 hours. All Specime... 02/27/19 Blood Culture - Preliminary, Resulted No Growth after 48 hours. All Specime... 02/27/19 Respiratory Virus Panel (PCR) (LISBET) - Final, Complete Respiratory Syncytial Virus 02/27/19 Gram Stain - Final, Complete 02/27/19 Sputum Culture - Final, Complete SONNY DUKE MD Mar 01, 2019 12:23
--- NOTE | 2019-03-01 12:43 | IPN ---
DATE OF SERVICE: 02/28/2019 SUBJECTIVE: The patient is seen and examined this morning at the bedside in the intensive care unit. I was in discussion with the overnight nurse regarding his every 3 hour sodium levels. He continues to have wheezing and dry cough, but reports he has been up and out of bed and denies any other complaints. He is following the fluid restriction. His sodium levels have slowly been improving up to 120 from 114 yesterday evening. VITAL SIGNS: Temperature 98.5. Pulse 60. Respiratory rate 18. Blood pressure 136/77. Saturating 93% to 95% on room air. Intake yesterday was 640. Urine output was not fully recorded. Weight on the bed scale today is 109.9 kg. GENERAL: The patient is seen lying in bed. Awake, alert and oriented, comfortable. No respiratory distress. Audible wheeze is present. Extraocular muscles are intact. Tongue is moist. Neck is supple. Jugular veins are not elevated. CARDIAC: S1 and S2. Mild bradycardia. Trace edema present in the peripheries. LUNGS: Show wheezing diffusely and occasional rhonchus. No tachypnea or accessory muscle use. He is comfortable on room. ABDOMEN: Obese. Soft. Nontender. There are bowel sounds. NEUROLOGIC: The patient is oriented times three with no focal deficits, cooperative, interactive and conversational. LABS: White count 8.1, hemoglobin 12.6. Sodium up to 120 this afternoon from a low of 114 yesterday. Potassium 3.7. Cortisol 30. Urine osmolality 426. INPATIENT MEDICATIONS: The patient received 200 mL of hypertonic saline yesterday and is ordered for another 200 mL of hypertonic saline today. He has also been started on salt tablets 2 grams by mouth twice a day and has also been started on Lasix 20 mg by mouth twice a day. He is receiving Zithromax 500 mg by mouth daily, Tessalon Perles as needed and prednisone 20 mg by mouth daily. The remainder of medications are unchanged from prior. PROBLEMS: 1. Euvolemic hypo-osmolar hyponatremia. Urine osmolality has appreciably dropped from 888 down to 426 so I anticipate further improvement in his serum sodium levels. He has improved from a low of 114 yesterday up to 120 this afternoon, about a difference of 4 to 6 mEq. He is on fluid restriction. Cortisol and TSH returned appropriate. His hydrochlorothiazide is appropriately discontinued. He is being treated for his underlying pneumonic process and we will continue him on Lasix and salt tablets. He has received a total of 400 mL of hypertonic saline thus far as well. Continue sodium monitoring every 4 hours with goal sodium tomorrow around 125. 2. Bronchitis with respiratory syncytial virus (RSV) infection. The patient continues with supportive care with nebulizers and inhaled steroids, prednisone and antibiotics as per the primary team. Treatment of the underlying pneumonic process will help with his sodium disorder as well. 3. Hypertension. Blood pressures are acceptable on amlodipine and bisoprolol. Please add hydrochlorothiazide to his list of known allergies.
[2019-03-01 16:00] VITALS: BP 148/76
[2019-03-01] MEDS: amLODIPine 10 MG TAB PO SCH (21:21)
[2019-03-01] MEDS: BISOPROLOL FUMARATE 10 MG TAB PO SCH (21:21)
[2019-03-01] MEDS: SITagliptin 50 MG TAB (JANUVIA) PO SCH (21:22)
[2019-03-01] MEDS: ASPIRIN 81 MG ENTERIC TAB PO SCH (21:22)
[2019-03-01 22:00] VITALS: BP 153/76
[2019-03-02 06:00] VITALS: BP 135/74
[2019-03-02 06:45] LABS: BASO % 0.2 % (0.0-1.0); EOS % 0.4 % (0.0-3.0); HEMATOCRIT 35.5 % (42.0-52.0); HEMOGLOBIN 12.5 g/dl (13.5-17.5); LYMPH # 1.9 10^3/uL (1.5-4.5); MEAN CORPUSCULAR HGB CONC 35.2 g/dl (32.0-36.5); MEAN CORPUSCULAR VOLUME 90.8 fl (80.0-96.0); MONO # 0.9 10^3/uL (0.0-0.8); MONO % 9.5 % (0.0-5.0); NEUTROPHILS # 6.9 10^3/uL (1.8-7.7); NEUTROPHILS % 70.5 % (36.0-66.0); PLATELET COUNT, AUTOMATED 251 10^3/uL (150-450); RED BLOOD COUNT 3.91 10^6/uL (4.30-6.10); WHITE BLOOD COUNT 9.8 10^3/uL (4.0-10.0)
[2019-03-02 07:14] LABS: BLOOD UREA NITROGEN 20 MG/DL (7-18); CALCIUM LEVEL 8.5 MG/DL (8.8-10.2); CARBON DIOXIDE LEVEL 28 MEQ/L (21-32); CHLORIDE LEVEL 94 MEQ/L (98-107); CREATININE FOR GFR 0.88 MG/DL (0.70-1.30); GLOMERULAR FILTRATION RATE > 60.0 (>49); GLUCOSE, FASTING 113 MG/DL (70-100); SODIUM LEVEL 128 MEQ/L (136-145)
[2019-03-02] MEDS: predniSONE 20 MG TAB PO SCH (08:55)
[2019-03-02] MEDS: GEMFIBROZIL 600 MG TAB PO SCH ×2 (08:56→21:54)
[2019-03-02] MEDS: AZITHROMYCIN 250 MG TAB PO SCH (08:56)
[2019-03-02] MEDS: ENOXAPARIN 40 MG/0.4 ML SYRINGE (J1650) SC SCH (08:56)
[2019-03-02] MEDS: HumaLOG INSULIN (NovoLOG) PER UNIT SC SCH ×4 (08:57→21:54)
[2019-03-02] MEDS: ALBUTEROL SULFATE 2.5 MG/0.5 ML INH NEB SOLN NEB SCH ×3 (09:18→15:08)
[2019-03-02] MEDS: BUDESONIDE 0.5 MG/2 ML INHALATION SUSPENSION INH SCH ×2 (09:19→20:34)
--- NOTE | 2019-03-02 11:12 | IPNPDOC ---
Subjective Date Seen The patient was seen on 03/02/19. Subjective Chief Complaint/HPI Abnormal labs, Cough and SOB Events since last encounter Patient's cough is much better today , He says SOB has also improved. No fever or chills,No chest pain or palpitation, His appetite is good, no nausea or vomiting or diarrhea. Objective Physical Examination General Exam: Positive: Alert, Cooperative, No Acute Distress Eye Exam: Positive: PERRLA, Conjunctiva & lids normal, EOMI; Negative: Sclera icteric ENT Exam: Positive: Atraumatic, Mucous membr. moist/pink Chest Exam: Positive: Normal air movement, Wheezing Heart Exam: Positive: Rate Normal, Regular Rhythm, Normal S1, Normal S2; Negative: Irregular Rhythm, Gallops, Murmurs, Rubs Abdomen Exam: Positive: Normal bowel sounds, Soft, Other (obese, protuberant); Negative: Tenderness, Hepatospenomegaly Extremity Exam: Positive: Normal pulses; Negative: Clubbing, Cyanosis, Edema, Tenderness, Swelling, Other Skin Exam: Positive: Nl turgor and temperature; Negative: Breakdown, Lesion Neuro Exam: Positive: Normal Speech Psych Exam: Positive: Mental status NL, Memory Intact, Oriented x 3 Assessment /Plan Assessment 63 year old male with PMH of Diabetes, hypertension, hyperlipidemia, glaucoma presented to the ED for abnormal blood work sent from the PMD's office. Patient says that he has been having a cold for the past 3 to 4 days with dry cough and sinus congestion so went to see his PMD yesterday. He was give Augmentin, azithromycin and prednisone and blood work was done. He took 2 doses of each of the medications. This morning he was called by his PMD's office and was tole to come to the ED for low sodium values. Sodium at the PMD's office was 119 yesterday. He was never told that he had any problem with sodium during his previous blood works. He does admit that he likes to drink water. He denies any alcohol usage. He denies any diarrhea or vomiting. In the ED his sodium was found to be 116 so was admitted to the hospitalist service for hyponatremia. Euvolemic hyponatremia Sodium about 128 to 130 with high urine osmolality and high urine sodium and low uric acid in blood indicates high probability for SIADH on the back ground of being on lisinopril, irbesartan and HCTZ. cortisol and TSH normal. continue on fluid restriction, regular diet On lasix, oral salt tabs as needed based on sodium levels. Respiratory tract infection / Acute bronchitis with post infectious bronchospasm RSV infection may have secondary bacterial infection also. flu is negative continue budesonide, albuterol Continue prednisone Diabetes will continue januvia, hold metformin will give lispro as per sliding scale Glaucoma continue home eye drops. Hypertension continue amlodipine and bisoprolol for now will hold ACEI and ARBs. Hyperlipidemia continue home meds Obesity on GILLIAN protocol does not have any nocturnal hypoxemia. Lung nodule right upper lobe calcified granuloma 1 cm in size. DVT prophylaxis ordered. Plan/VTE VTE Prophylaxis Ordered?: Yes VS, I&O, 24H, Fishbone Vital Signs/I&O Vital Signs Date Time Temp Pulse Resp B/P (MAP) Pulse Ox O2 Delivery O2 Flow Rate FiO2 03/02/19 06:00 97.4 56 16 135/74 (94) 96 03/01/19 19:35 Room Air I&O- Last 24 Hours up to 6 AM 03/02/19 06:00 Intake Total 1460 ml Output Total 650 ml Balance 810 ml Laboratory Data 24H LABS Laboratory Tests 2 03/01/19 11:47: Bedside Glucose (Misc Panel) 157H 03/01/19 16:20: Bedside Glucose (Misc Panel) 142H 03/01/19 20:02: Bedside Glucose (Misc Panel) 120H 03/02/19 06:33: Immature Granulocyte % (Auto) 0.4, White Blood Count 9.8, Red Blood Count 3.91L, Hemoglobin 12.5L, Hematocrit 35.5L, Mean Corpuscular Volume 90.8, Mean Corpuscular Hemoglobin 32.0, Mean Corpuscular Hemoglobin Concent 35.2, Red Cell Distribution Width 13.2, Platelet Count 251, Neutrophils (%) (Auto) 70.5H, Lymphocytes (%) (Auto) 19.0L, Monocytes (%) (Auto) 9.5H, Eosinophils (%) (Auto) 0.4, Basophils (%) (Auto) 0.2, Neutrophils # (Auto) 6.9, Lymphocytes # (Auto) 1.9, Monocytes # (Auto) 0.9H, Eosinophils # (Auto) 0.0, Basophils # (Auto) 0.0, Nucleated Red Blood Cells % (auto) 0.0, Anion Gap 6L, Glomerular Filtration Rate > 60.0, Blood Urea Nitrogen 20H, Creatinine 0.88, Sodium Level 128L, Potassium Level 4.0, Chloride Level 94L, Carbon Dioxide Level 28, Calcium Level 8.5L 03/02/19 10:40: CBC/BMP Laboratory Tests 03/01/19 11:36 03/01/19 17:57 03/01/19 23:59 03/02/19 06:33 Red Blood Count 3.91 L, Mean Corpuscular Volume 90.8, Mean Corpuscular Hemoglobin 32.0, Mean Corpuscular Hemoglobin Concent 35.2, Red Cell Distribution Width 13.2, Neutrophils (%) (Auto) 70.5 H, Lymphocytes (%) (Auto) 19.0 L, Monocytes (%) (Auto) 9.5 H, Eosinophils (%) (Auto) 0.4, Basophils (%) (Auto) 0.2, Neutrophils # (Auto) 6.9, Lymphocytes # (Auto) 1.9, Monocytes # (Auto) 0.9 H, Eosinophils # (Auto) 0.0, Basophils # (Auto) 0.0, Calcium Level 8.5 L Microbiology Microbiology 02/27/19 Blood Culture - Preliminary, Resulted No Growth after 48 hours. All Specime... 02/27/19 Blood Culture - Preliminary, Resulted No Growth after 72 hours. All specime... 02/27/19 Respiratory Virus Panel (PCR) (LISBET) - Final, Complete Respiratory Syncytial Virus 02/27/19 Gram Stain - Final, Complete 02/27/19 Sputum Culture - Final, Complete SONNY DUKE MD Mar 02, 2019 11:12
[2019-03-02 14:00] VITALS: BP 132/83
--- NOTE | 2019-03-02 17:40 | IPN ---
DATE: 03/01/2019 SUBJECTIVE: The patient is seen and examined this morning at the bedside. Denies any overnight complaints. Continues to have wheezing but reports he feels his breathing is improving. Sodium levels have been correcting appropriately and up to 124 this morning and his frequency of sodium checks is being decreased. VITAL SIGNS: Temperature 99, pulse 57, respiratory rate 18, blood pressure 148/76, saturating 94% to 96% on room air. GENERAL: The patient is seen sitting out of bed to the chair, eating breakfast, obese male, in no distress. Extraocular muscles are intact. Tongue is moist. Jugular veins are difficult to assess but do not appear elevated while he is sitting upright. CARDIAC: S1, S2. Trace edema present in the peripheries. LUNGS: Show diffuse wheezing bilaterally. No tachypnea or accessory muscle use. He is comfortable on room air. ABDOMEN: Obese, soft and nontender. EXTREMITIES: Show trace edema. No clubbing or cyanosis. SKIN: Normal turgor and temperature. NEUROLOGIC: Oriented times three, interactive and conversational. LABORATORY DATA: Sodium 124 with a repeat sodium of 136 in the evening, potassium 3.7. Urine osmolality 660. Hemoglobin 12.8. INPATIENT MEDICATIONS: I have him another 200 mL of hypertonic saline at a slow rate this afternoon. He continues on albuterol, azithromycin, prednisone. I discontinued his Lasix and his salt tablets and he was also given 40 mEq of potassium orally. PROBLEMS: 1. Euvolemic hypo-osmolar hyponatremia. Sodium is improved to 126 this afternoon. He did receive 200 mL further of hypertonic saline during the course of the day. His urine osmolality remains significantly elevated indicative of ongoing inappropriate antidiuretic hormone. His cortisol and thyroid-stimulating hormone (TSH) returned appropriate. He is off hydrochlorothiazide. As his salt level continue to improve, I will stop the Lasix and the salt tablets. His sodium can be checked every six hours now with goal sodium tomorrow of around 130. 2. Bronchitis with respiratory syncytial virus (RSV) infection. He continues with supportive care with nebulizers, inhaled steroids, prednisone and antibiotics as per the primary team. Treatment of the underlying pneumonic process will help with the sodium disorder as well. 3. Hypertension. The patient continues on amlodipine and bisoprolol. Blood pressures are acceptable. Please add hydrochlorothiazide to his list of known allergies. DISPOSITION: Sodium levels have been correcting appropriately. Sodium checks can now be done every six hourly.
[2019-03-02] MEDS ORDERED: TOLVAPTAN 7.5 MG HALF-TAB PO ONE (20:00)
[2019-03-02] MEDS ORDERED: PILL CRUSHER/CUTTER 1 EACH XX PRN (20:15)
[2019-03-02] MEDS ORDERED: TOLVAPTAN 15 MG TAB (SAMSCA) PO ONE (20:15)
[2019-03-02] MEDS: amLODIPine 10 MG TAB PO SCH (21:54)
[2019-03-02] MEDS: ASPIRIN 81 MG ENTERIC TAB PO SCH (21:54)
[2019-03-02] MEDS: BISOPROLOL FUMARATE 10 MG TAB PO SCH (21:54)
[2019-03-02] MEDS: SITagliptin 50 MG TAB (JANUVIA) PO SCH (21:54)
[2019-03-02 22:00] VITALS: BP 156/84
[2019-03-03] MEDS: ALBUTEROL SULFATE 2.5 MG/0.5 ML INH NEB SOLN NEB SCH ×3 (00:02→23:00)
[2019-03-03 06:00] VITALS: BP 150/90
[2019-03-03 06:39] LABS: BASO % 0.2 % (0.0-1.0); EOS # 0.1 10^3/uL (0.0-0.50); EOS % 0.5 % (0.0-3.0); HEMATOCRIT 37.3 % (42.0-52.0); HEMOGLOBIN 12.7 g/dl (13.5-17.5); LYMPH # 2.9 10^3/uL (1.5-4.5); LYMPH % 26.4 % (24.0-44.0); MEAN CORPUSCULAR HEMOGLOBIN 31.1 pg (27.0-33.0); MEAN CORPUSCULAR VOLUME 91.4 fl (80.0-96.0); MONO % 8.8 % (0.0-5.0); NEUTROPHILS % 63.4 % (36.0-66.0); PLATELET COUNT, AUTOMATED 294 10^3/uL (150-450); RED BLOOD COUNT 4.08 10^6/uL (4.30-6.10)
[2019-03-03 07:02] LABS: BLOOD UREA NITROGEN 20 MG/DL (7-18); CALCIUM LEVEL 8.5 MG/DL (8.8-10.2); CARBON DIOXIDE LEVEL 28 MEQ/L (21-32); CHLORIDE LEVEL 94 MEQ/L (98-107); GLOMERULAR FILTRATION RATE > 60.0 (>49); GLUCOSE, FASTING 122 MG/DL (70-100); POTASSIUM SERUM 3.8 MEQ/L (3.5-5.1); SODIUM LEVEL 127 MEQ/L (136-145)
[2019-03-03] MEDS: BUDESONIDE 0.5 MG/2 ML INHALATION SUSPENSION INH SCH ×2 (08:26→23:01)
[2019-03-03] MEDS: ENOXAPARIN 40 MG/0.4 ML SYRINGE (J1650) SC SCH (08:46)
[2019-03-03] MEDS: HumaLOG INSULIN (NovoLOG) PER UNIT SC SCH ×4 (08:46→20:48)
[2019-03-03] MEDS: GEMFIBROZIL 600 MG TAB PO SCH ×2 (08:46→20:48)
[2019-03-03] MEDS: AZITHROMYCIN 250 MG TAB PO SCH (08:46)
[2019-03-03] MEDS: predniSONE 20 MG TAB PO SCH (08:46)
[2019-03-03] MEDS ORDERED: TOLVAPTAN 15 MG TAB (SAMSCA) PO ONE (09:00)
[2019-03-03] MEDS ORDERED: POTASSIUM CHLORIDE 10 MEQ SR TABLET PO ONE (09:00)
[2019-03-03 14:00] VITALS: BP 138/70
--- NOTE | 2019-03-03 14:03 | IPNPDOC ---
Subjective Date Seen The patient was seen on 03/03/19. Subjective Chief Complaint/HPI abnormal labs, SOB and wheezing Events since last encounter Patient says his cough is getting better and does not have any SOB now. No fever or chills, no nausea or vomiting or diarrhea, his appetite is good. He is not following the fluid restriction. Says really missing his water. His sodium still in the 125 to 128 range got another dose of tolvaptan this morning. Objective Physical Examination General Exam: Positive: Alert, Cooperative, No Acute Distress Eye Exam: Positive: PERRLA, Conjunctiva & lids normal, EOMI ENT Exam: Positive: Atraumatic, Mucous membr. moist/pink Chest Exam: Positive: Normal air movement, Rhonchi (few scatterred ronchi), Other (coarse breath sounds. ) Heart Exam: Positive: Rate Normal, Regular Rhythm, Normal S1, Normal S2 Abdomen Exam: Positive: Normal bowel sounds, Soft, Other Extremity Exam: Positive: Normal pulses Skin Exam: Positive: Nl turgor and temperature Neuro Exam: Positive: Normal Speech Psych Exam: Positive: Mental status NL, Memory Intact, Oriented x 3 Assessment /Plan Assessment 63 year old male with PMH of Diabetes, hypertension, hyperlipidemia, glaucoma presented to the ED for abnormal blood work sent from the PMD's office. Patient says that he has been having a cold for the past 3 to 4 days with dry cough and sinus congestion so went to see his PMD yesterday. He was give Augmentin, azithromycin and prednisone and blood work was done. He took 2 doses of each of the medications. This morning he was called by his PMD's office and was tole to come to the ED for low sodium values. Sodium at the PMD's office was 119 yesterday. He was never told that he had any problem with sodium during his previous blood works. He does admit that he likes to drink water. He denies any alcohol usage. He denies any diarrhea or vomiting. In the ED his sodium was found to be 116 so was admitted to the hospitalist service for hyponatremia. Euvolemic hyponatremia Sodium about 128 to 130 with high urine osmolality and high urine sodium and low uric acid in blood indicates high probability for SIADH on the back ground of being on lisinopril, irbesartan and HCTZ. cortisol and TSH normal. continue on fluid restriction, regular diet On lasix, oral salt tabs as needed based on sodium levels. Has had 2 doses of tolvaptan. Respiratory tract infection / Acute bronchitis with post infectious bronchospasm RSV infection may have secondary bacterial infection also. flu is negative continue budesonide, albuterol taper prednisone Diabetes will continue januvia, hold metformin will give lispro as per sliding scale Glaucoma continue home eye drops. Hypertension continue amlodipine and bisoprolol for now will hold ACEI and ARBs. Hyperlipidemia continue home meds Obesity on GILLIAN protocol does not have any nocturnal hypoxemia. Lung nodule right upper lobe calcified granuloma 1 cm in size. DVT prophylaxis ordered. Plan/VTE VTE Prophylaxis Ordered?: Yes VS, I&O, 24H, Fishbone Vital Signs/I&O Vital Signs Date Time Temp Pulse Resp B/P (MAP) Pulse Ox O2 Delivery O2 Flow Rate FiO2 03/03/19 06:00 98.8 67 20 150/90 (110) 96 03/01/19 19:35 Room Air I&O- Last 24 Hours up to 6 AM 03/03/19 06:00 Intake Total 720 ml Output Total 1280 ml Balance -560 ml Laboratory Data 24H LABS Laboratory Tests 2 03/02/19 16:48: Bedside Glucose (Misc Panel) 135H 03/02/19 20:17: Bedside Glucose (Misc Panel) 127H 03/03/19 01:19: Bedside Glucose (Misc Panel) 137H 03/03/19 06:15: Immature Granulocyte % (Auto) 0.7, White Blood Count 11.0H, Red Blood Count 4.08L, Hemoglobin 12.7L, Hematocrit 37.3L, Mean Corpuscular Volume 91.4, Mean Corpuscular Hemoglobin 31.1, Mean Corpuscular Hemoglobin Concent 34.0, Red Cell Distribution Width 13.0, Platelet Count 294, Neutrophils (%) (Auto) 63.4, Lymphocytes (%) (Auto) 26.4, Monocytes (%) (Auto) 8.8H, Eosinophils (%) (Auto) 0.5, Basophils (%) (Auto) 0.2, Neutrophils # (Auto) 7.0, Lymphocytes # (Auto) 2.9, Monocytes # (Auto) 1.0H, Eosinophils # (Auto) 0.1, Basophils # (Auto) 0.0, Nucleated Red Blood Cells % (auto) 0.0, Anion Gap 5L, Glomerular Filtration Rate > 60.0, Blood Urea Nitrogen 20H, Creatinine 0.90, Sodium Level 127L, Potassium Level 3.8, Chloride Level 94L, Carbon Dioxide Level 28, Calcium Level 8.5L 03/03/19 11:29: Bedside Glucose (Misc Panel) 134H CBC/BMP Laboratory Tests 03/02/19 17:54 03/02/19 23:48 03/03/19 06:15 Red Blood Count 4.08 L, Mean Corpuscular Volume 91.4, Mean Corpuscular Hemoglobin 31.1, Mean Corpuscular Hemoglobin Concent 34.0, Red Cell Distribution Width 13.0, Neutrophils (%) (Auto) 63.4, Lymphocytes (%) (Auto) 26.4, Monocytes (%) (Auto) 8.8 H, Eosinophils (%) (Auto) 0.5, Basophils (%) (Auto) 0.2, Neutrophils # (Auto) 7.0, Lymphocytes # (Auto) 2.9, Monocytes # (Auto) 1.0 H, Eosinophils # (Auto) 0.1, Basophils # (Auto) 0.0, Calcium Level 8.5 L 03/03/19 11:57 Microbiology Microbiology 02/27/19 Blood Culture - Preliminary, Resulted No Growth after 72 hours. All specime... 02/27/19 Blood Culture - Preliminary, Resulted No Growth after 72 hours. All specime... 02/27/19 Respiratory Virus Panel (PCR) (LISBET) - Final, Complete Respiratory Syncytial Virus 02/27/19 Gram Stain - Final, Complete 02/27/19 Sputum Culture - Final, Complete SONNY DUKE MD Mar 03, 2019 14:03
[2019-03-03] MEDS: SITagliptin 50 MG TAB (JANUVIA) PO SCH (20:47)
[2019-03-03 20:48] VITALS: BP 162/87
[2019-03-03] MEDS: BISOPROLOL FUMARATE 10 MG TAB PO SCH (20:48)
[2019-03-03] MEDS: amLODIPine 10 MG TAB PO SCH (20:48)
[2019-03-03] MEDS: ASPIRIN 81 MG ENTERIC TAB PO SCH (20:48)
[2019-03-03] MEDS ORDERED: LATANOPROST 0.005% OPHTH SOLN 2.5 ML OU SCH (21:00)
[2019-03-03 22:00] VITALS: BP 162/87
[2019-03-04] MEDS: TIMOLOL MALEATE 0.5% OPHTH SOLN 5 ML OU SCH ×2 (02:22→08:37)
[2019-03-04 06:00] VITALS: BP 142/74
[2019-03-04 07:04] LABS: BASO % 0.1 % (0.0-1.0); EOS % 0.3 % (0.0-3.0); HEMATOCRIT 37.1 % (42.0-52.0); HEMOGLOBIN 12.6 g/dl (13.5-17.5); LYMPH # 2.5 10^3/uL (1.5-4.5); LYMPH % 26.7 % (24.0-44.0); MEAN CORPUSCULAR HEMOGLOBIN 31.8 pg (27.0-33.0); MEAN CORPUSCULAR VOLUME 93.7 fl (80.0-96.0); MONO # 0.9 10^3/uL (0.0-0.8); MONO % 9.2 % (0.0-5.0); NEUTROPHILS # 5.9 10^3/uL (1.8-7.7); NEUTROPHILS % 63.1 % (36.0-66.0); PLATELET COUNT, AUTOMATED 301 10^3/uL (150-450); RED BLOOD COUNT 3.96 10^6/uL (4.30-6.10); WHITE BLOOD COUNT 9.4 10^3/uL (4.0-10.0)
[2019-03-04 07:18] LABS: BLOOD UREA NITROGEN 18 MG/DL (7-18); CALCIUM LEVEL 8.7 MG/DL (8.8-10.2); CARBON DIOXIDE LEVEL 28 MEQ/L (21-32); CHLORIDE LEVEL 100 MEQ/L (98-107); CREATININE FOR GFR 0.95 MG/DL (0.70-1.30); GLOMERULAR FILTRATION RATE > 60.0 (>49); GLUCOSE, FASTING 111 MG/DL (70-100); POTASSIUM SERUM 3.8 MEQ/L (3.5-5.1); SODIUM LEVEL 133 MEQ/L (136-145)
[2019-03-04] MEDS: AZITHROMYCIN 250 MG TAB PO SCH (08:32)
[2019-03-04] MEDS: GEMFIBROZIL 600 MG TAB PO SCH (08:32)
[2019-03-04] MEDS: HumaLOG INSULIN (NovoLOG) PER UNIT SC SCH ×2 (08:32→12:12)
[2019-03-04] MEDS: ENOXAPARIN 40 MG/0.4 ML SYRINGE (J1650) SC SCH (08:32)
[2019-03-04] MEDS: ALBUTEROL SULFATE 2.5 MG/0.5 ML INH NEB SOLN NEB SCH (08:47)
[2019-03-04] MEDS: BUDESONIDE 0.5 MG/2 ML INHALATION SUSPENSION INH SCH (08:47)
[2019-03-04] MEDS ORDERED: FUROSEMIDE 20 MG TAB PO SCH (09:00)
[2019-03-04] MEDS ORDERED: predniSONE 10 MG TAB PO SCH (09:00)
[2019-03-04] MEDS ORDERED: SODIUM CHLORIDE 1 GM TAB PO SCH (09:00)
[2019-03-04] MEDS ORDERED: BENZ-18 PO (10:35)
[2019-03-04] MEDS ORDERED: BISO10TA6 PO (10:35)
[2019-03-04] MEDS ORDERED: LASI20TA3 PO (10:35)
[2019-03-04] MEDS ORDERED: PRED10TA2 PO (10:37)
--- NOTE | 2019-03-04 11:00 | IPN ---
DATE: 03/02/2019 SUBJECTIVE: The patient is seen and examined this morning sitting out of bed to the chair having breakfast. No overnight complaints reported. He feels his breathing continues to symptomatically improve. He inquires in regards to discharge planning. His sodium level has appropriately increased up to 128 but his urine osmolality does remain quite elevated. VITAL SIGNS: Temperature 98.1, pulse 78, respiratory rate 20, blood pressure 156/84, saturating 92% on room air. Intake yesterday was not fully recorded, neither was his output. Weight on the bed scale today 107.1 kg. General: Patient is seen sitting out of bed to the chair, eating. Awake, alert, oriented times three. Comfortable in no acute distress. Extraocular muscles are intact. Tongue is moist. Neck is supple. Jugular veins are not elevated while he is sitting upright. Cardiac: S1, S2, regular rate and rhythm. Trace edema in the periphery. His lungs are clear. Lung sounds show a few scattered rhonchi, otherwise, there is symmetric air movement without crackle or rales. Abdomen is soft and nontender. There are bowel sounds. Extremities are negative for clubbing, cyanosis and the compression stockings are in place on both sides. Skin: Normal temperature and turgor. LABS: Sodium 128. Hemoglobin 12.5, platelet 251. Potassium 4.0, creatinine 0.8. INPATIENT MEDICATIONS: I am discontinuing the patient's Lasix and salt tablet and I am giving him a dose of tolvaptan 7.5 mg by mouth times one. His prednisone is being tapered per the primary team. The remainder of the medications are unchanged from prior. PROBLEMS: 1. Euvolemic hypo-osmolar, hyponatremia: Sodium has improved to 128 to 130. His urine osmolality still remains quite elevated with ongoing syndrome of inappropriate antidiuretic hormone, which is likely to cause recurrent hyponatremia. Hence, I am stopping the Lasix and the salt tablets and we will give him a dose of tolvaptan 7.5 mg by mouth times one and depending on how he responds, this can be further redosed. Continue fluid restriction and sodium levels can be checked less frequently now. 2. Respiratory syncytial virus (RSV) infection with bronchitis: Patient continues with supportive care. Steroids are being tapered as per the primary team and he continues on nebulizers and inhaled steroids and is symptomatically improving. 3. Hypertension: Blood pressures are fairly controlled. He is unsuitable for hydrochlorothiazide going forward. His angiotensin receptor rachel can be resumed as needed.
[2019-03-04] MEDS ORDERED: SODI1TAB6 PO (12:39)
--- NOTE | 2019-03-04 13:30 | IPN ---
DATE OF SERVICE: 03/03/2019 SUBJECTIVE: The patient was seen and examined at the bedside today morning. He is afebrile, hemodynamically stable. His sodium levels are improving. Sodium is up to 125 today morning. He was given half the dose of tolvaptan 7.5 mg yesterday. He denies any active complaints at this point. OBJECTIVE: Vital signs: Temperature is 98.3 degrees Fahrenheit, blood pressure 138/70, pulse is 74, respiratory rate of 20, saturating 93% on room air. Intake and output: Urine output recorded is 825 mL yesterday, 1.7 liters so far today since overnight. Weight in the bed scale is 106 kg. PHYSICAL EXAMINATION: General: The patient is awake and alert, oriented times two, laying in bed, no apparent distress. Head and neck examination: Extraocular muscles intact. Pupils equally round and reactive to light. Mucous membranes are moist. Neck is supple. There is no jugular venous distention (JVD). Cardiovascular: S1, S2, regular rate. No edema of the bilateral lower extremities. Respiratory: Chest is clear to auscultation bilaterally. Bilateral equal air entry. No rales or rhonchi. Abdomen: Soft, obese, positive bowel sounds. Nontender. No organomegaly. Musculoskeletal: No clubbing or cyanosis. Pulses are 2+. Central nervous system (GALLERY OR MUSEUM TECHNICIAN): No focal deficit. The patient otherwise has a slow mentation, but he is able to communicate well and moves all extremities. LABORATORY REVIEW: Complete blood count (CBC) showed a WBC of 11, hemoglobin 12.7, platelets are 294. Basic metabolic profile (BMP) showed sodium 127, potassium is 3.8, chloride 94, bicarbonate 28, BUN is 20, creatinine 0.9, glucose 122, calcium is 8.5. A repeat BMP done in the evening today at 6 p.m. showed a sodium of 133. CURRENT INPATIENT MEDICATIONS: The patient's medications were all reviewed by me. He continues to be on antibiotic. He was given a dose of tolvaptan 7.5 mg, one dose last night. I have given him a dose of tolvaptan 15 mg by mouth times one dose today morning. ASSESSMENT AND PLAN: 1. Hyponatremia. The patient has euvolemic hypotonic hyponatremia with high urine osmolality which points towards syndrome of inappropriate secretion of antidiuretic hormone (SIADH). He was given a dose of tolvaptan yesterday. He responded to that well. Sodium is still 127 today morning, so he was given tolvaptan 15 mg today morning. Sodium is nicely improving to 133 in the evening. I would liberalize his fluid intake for tonight only. 2. Hypertension. Blood pressure is acceptable. Continue current dose of bisoprolol and amlodipine. Avoid use of thiazide diuretics and angiotensin-converting enzyme (ANTHONY) inhibitor at this point in the setting of hyponatremia. 3. Acute bronchitis. The patient has respiratory syncytial virus infection. His symptoms are getting better. He is getting steroids and nebulizations. Management is as per primary team. SHUKRID
--- NOTE | 2019-03-04 15:35 | DS.PDOC ---
Discharge Summary General Date of Admission Feb 27, 2019 at 13:40 Date of Discharge 03/04/19 Discharge Summary PROCEDURES PERFORMED DURING STAY: [None]. DISCHARGE DIAGNOSES: Hyponatremia due to SIADH on the background of HCTZ, ACEi and ARB Acute viral respiratory tract infection with RSV Post infectious bronchospasm. Diabetes, hypertension, hyperlipidemia, glaucoma Obesity Lung nodule COMPLICATIONS/CHIEF COMPLAINT: Hyponatremia. HISTORY OF PRESENT ILLNESS: see history and physical HOSPITAL COURSE: 63 year old male with PMH of Diabetes, hypertension, hyperlipidemia, glaucoma presented to the ED for abnormal blood work sent from the PMD's office. Patient says that he has been having a cold for the past 3 to 4 days with dry cough and sinus congestion so went to see his PMD yesterday. He was give Augmentin, azithromycin and prednisone and blood work was done. He took 2 doses of each of the medications. This morning he was called by his PMD's office and was tole to come to the ED for low sodium values. Sodium at the PMD's office was 119 yesterday. He was never told that he had any problem with sodium during his previous blood works. He does admit that he likes to drink water. He denies any alcohol usage. He denies any diarrhea or vomiting. In the ED his sodium was found to be 116 so was admitted to the hospitalist service for hyponatremia. Euvolemic hyponatremia Sodium about 133 with high urine osmolality and high urine sodium and low uric acid in blood indicates high probability for SIADH on the back ground of being on lisinopril, irbesartan and HCTZ. cortisol and TSH normal. continue on fluid restriction, regular diet On lasix, oral salt tabs as needed based on sodium levels. Has had 2 doses of tolvaptan. Respiratory tract infection / Acute bronchitis with post infectious bronchospasm RSV infection may have secondary bacterial infection also. flu is negative taper prednisone Diabetes will continue januvia, metformin Glaucoma continue home eye drops. Hypertension continue amlodipine and bisoprolol Stop Lisinopril, Irbesartan and HCTZ Hyperlipidemia continue home meds Obesity was on GILLIAN protocol does not have any nocturnal hypoxemia. Lung nodule right upper lobe calcified granuloma 1 cm in size. DISCHARGE MEDICATIONS: Please see below. ALLERGIES: Please see below. PHYSICAL EXAMINATION ON DISCHARGE: VITAL SIGNS: Please see below. General Exam: Positive: Alert, Cooperative, No Acute Distress Eye Exam: Positive: PERRLA, Conjunctiva & lids normal, EOMI ENT Exam: Positive: Atraumatic, Mucous membr. moist/pink Chest Exam: Positive: Normal air movement, Rhonchi (few scatterred ronchi), Other (coarse breath sounds. ) Heart Exam: Positive: Rate Normal, Regular Rhythm, Normal S1, Normal S2 Abdomen Exam: Positive: Normal bowel sounds, Soft, Other Extremity Exam: Positive: Normal pulses Skin Exam: Positive: Nl turgor and temperature Neuro Exam: Positive: Normal Speech Psych Exam: Positive: Mental status NL, Memory Intact, Oriented x 3 LABORATORY DATA: Please see below. ACTIVITY: [As tolerated]. DIET: regular, with fluid restriction of 1.8 liters in 24 hours. DISPOSITION: 01 Home, Self-Care. DISCHARGE INSTRUCTIONS: Follow up PMD in 1 week Follow up Nephrology in 2 weeks DISCHARGE CONDITION: [Stable]. TIME SPENT ON DISCHARGE: Greater than 30 minutes. Vital Signs/I&Os Vital Signs Date Time Temp Pulse Resp B/P (MAP) Pulse Ox O2 Delivery O2 Flow Rate FiO2 03/04/19 06:00 98.3 56 18 142/74 (96) 93 03/01/19 19:35 Room Air I&O- Last 24 Hours up to 6 AM 03/04/19 06:00 Intake Total 2700 ml Output Total 1450 ml Balance 1250 ml Laboratory Data Labs 24H Laboratory Tests 2 03/03/19 16:15: Bedside Glucose (Misc Panel) 163H 03/03/19 20:08: Bedside Glucose (Misc Panel) 116H 03/04/19 06:08: Immature Granulocyte % (Auto) 0.6, White Blood Count 9.4, Red Blood Count 3.96L, Hemoglobin 12.6L, Hematocrit 37.1L, Mean Corpuscular Volume 93.7, Mean Corpuscular Hemoglobin 31.8, Mean Corpuscular Hemoglobin Concent 34.0, Red Cell Distribution Width 13.0, Platelet Count 301, Neutrophils (%) (Auto) 63.1, Lymphocytes (%) (Auto) 26.7, Monocytes (%) (Auto) 9.2H, Eosinophils (%) (Auto) 0.3, Basophils (%) (Auto) 0.1, Neutrophils # (Auto) 5.9, Lymphocytes # (Auto) 2.5, Monocytes # (Auto) 0.9H, Eosinophils # (Auto) 0.0, Basophils # (Auto) 0.0, Nucleated Red Blood Cells % (auto) 0.0, Anion Gap 5L, Glomerular Filtration Rate > 60.0, Blood Urea Nitrogen 18, Creatinine 0.95, Sodium Level 133L, Potassium Level 3.8, Chloride Level 100, Carbon Dioxide Level 28, Calcium Level 8.7L 03/04/19 11:53: Bedside Glucose (Misc Panel) 124H CBC/BMP Laboratory Tests 03/03/19 17:59 03/04/19 06:08 Red Blood Count 3.96 L, Mean Corpuscular Volume 93.7, Mean Corpuscular Hemoglobin 31.8, Mean Corpuscular Hemoglobin Concent 34.0, Red Cell Distribution Width 13.0, Neutrophils (%) (Auto) 63.1, Lymphocytes (%) (Auto) 26.7, Monocytes (%) (Auto) 9.2 H, Eosinophils (%) (Auto) 0.3, Basophils (%) (Auto) 0.1, Neutrop hils # (Auto) 5.9, Lymphocytes # (Auto) 2.5, Monocytes # (Auto) 0.9 H, Eosinophils # (Auto) 0.0, Basophils # (Auto) 0.0, Calcium Level 8.7 L FSBS Laboratory Tests Test 03/03/19 16:15 03/03/19 20:08 03/04/19 11:53 Range/Units Bedside Glucose (Misc Panel) 163 116 124 80-115 MG/DL Microbiology Microbiology 02/27/19 Blood Culture - Final, Complete NO GROWTH AFTER 5 DAYS 02/27/19 Blood Culture - Final, Complete NO GROWTH AFTER 5 DAYS 02/27/19 Respiratory Virus Panel (PCR) (LISBET) - Final, Complete Respiratory Syncytial Virus 02/27/19 Gram Stain - Final, Complete 02/27/19 Sputum Culture - Final, Complete Discharge Medications Scheduled Amlodipine Besylate (Amlodipine Besylate) 10 Mg Tablet, 10 MG PO QHS, (Reported) Aspirin (Aspir 81) 81 Mg Tablet.dr, 81 MG PO QHS, (Reported) Bimatoprost (Lumigan) 0.01% 2.5ML Drops, 1 DROP OU QHS, (Reported) Bisoprolol Fumarate (Bisoprolol Fumarate) 10 Mg Tablet, 10 MG PO QHS Ciclopirox Olamine (Ciclopirox) 15 Gm Cream..g., 1 APLCT TOP BID, (Reported) APPLY TO FEET Furosemide (Lasix) 20 Mg Tablet, 20 MG PO BID Gemfibrozil (Gemfibrozil) 600 Mg Tablet, 600 MG PO BID, (Reported) Metformin HCl (Metformin HCl) 1,000 Mg Tablet, 1,000 MG PO BID, (Reported) Prednisone (Prednisone) 10 Mg Tablet, 10 MG PO DAILY 1 tab daily for 2 days then stop Sitagliptin Phosphate (Januvia) 100 Mg Tablet, 100 MG PO QHS, (Reported) Sodium Chloride (Sodium Chloride) 1 Gm Tablet, 1 GM PO BID Timolol Maleate (Timolol Maleate) 0.5% 5ML Drop.daily, 1 DROP OU BID, (Reported) Scheduled PRN Benzonatate (Benzonatate) 100 Mg Capsule, 100 MG PO TIDP PRN for COUGH Allergies Coded Allergies: No Known Allergies (Unverified , 02/27/19) SONNY DUKE MD Mar 04, 2019 15:35
[2019-03-04] MEDS ORDERED: ENTER DRUG NAME HERE (PATIENT'S OWN MED) OU SCH (21:00)
--- NOTE | 2019-03-06 06:51 | IPN ---
DATE OF VISIT; 03/04/2019 SUBJECTIVE: The patient was seen and examined at the bedside today morning. He was sitting and eating his breakfast when I saw him. His niece was also present at the bedside. His sodium level has improved to 133 today. He was given one dose of tolvaptan yesterday. The patient reports that he is feeling better. He is getting ready to be discharged today. OBJECTIVE: VITAL SIGNS: Temperature is 98.3 degrees Fahrenheit, blood pressure 142/74, pulse is 56 rate, respiratory rate of 18, saturating 93% on room air. Intake and output: Urine output is not recorded well. Weight in the bed scale is 105.2 kg. PHYSICAL EXAMINATION: GENERAL: The patient is awake, alert, oriented times three, sitting up in the bed in no apparent distress. HEAD/NECK: Extraocular muscles intact. Pupils equally round and reactive to light. Mucous membranes are moist. Neck is supple. There is no jugular venous distention ( JVD). CARDIOVASCULAR: S1, S2. Regular rate. No edema of the bilateral lower extremities. RESPIRATORY: Chest is clear to auscultation bilaterally. Bilateral equal air entry. No rales or rhonchi. ABDOMEN: Soft, obese, positive bowel sounds. Nontender. No organomegaly. MUSCULOSKELETAL: No clubbing or cyanosis. Pulses are 2+. CENTRAL NERVOUS SYSTEM (PASTRY COOK HELPER): No focal deficit. Power is 5/5 in all extremities. LABORATORY DATA: CBC showed a WBC of 9.4, hemoglobin 12.6, platelets are 301. Basic metabolic profile (BMP) showed sodium 133, potassium 3.8, chloride 100, bicarb 20 and BUN 18, creatinine is 0.9, calcium is 8.7. CURRENT INPATIENT MEDICATIONS: The patient's medications were all reviewed by me. He was given one dose of tolvaptan yesterday. I started him on sodium chloride 1 gram by mouth twice a day and furosemide 20 mg by mouth twice a day. ASSESSMENT/PLAN: 1. Hyponatremia. The patient has euvolemic hyponatremia. He responded well to tolvaptan. I instructed the patient again not to drink more than 50 ounces of fluids a day. He is being discharged on a salt tablet 1 gram by mouth twice a day and Lasix 20 mg by mouth twice a day. He needs to followup with nephrology as an outpatient. 2. Hypertension. Blood pressures are optimized at this point. Avoid the use of ANTHONY inhibitors or angiotensin receptor blockers as outpatient. Continue current dose of amlodipine and bisoprolol. Further antihypertensive adjustments will be done as an outpatient in the clinic. 3. Disposition: It is okay to discharge the patient home from a nephrology standpoint. Plan of care was discussed with the hospitalist team, Dr. Raisa Washington.
== END 2019-03-04 14:05 | disposition home or self-care (01) | DRG 424 ==
LOC: M ED 09:12 → MERGE 13:40 → M ED INP 13:40 → M ICU 16:30 → M MS5PR 03-01 19:11
PROVIDERS: ADMIT Internal Medicine Nephrology; ATTEND Internal Medicine Nephrology
DX: E22.2 Syndrome of inappropriate secretion of antidiuretic hormone (principal); I10 Essential (primary) hypertension; J20.5 Acute bronchitis due to respiratory syncytial virus; R91.1 Solitary pulmonary nodule; E66.9 Obesity, unspecified; E78.5 Hyperlipidemia, unspecified; E11.9 Type 2 diabetes mellitus without complications; H40.9 Unspecified glaucoma; Z79.82 Long term (current) use of aspirin; Z79.899 Other long term (current) drug therapy

== ENCOUNTER → 2021-06-02 | Outpatient (REF) | payer BC ==
[~2021-06-02] MED LIST changes: +AMLO1TAB25 PO; +ASPI81TA86 PO; +AUGM875T28 PO; +AZIT500T5 PO; -AZITHROMYCIN 250 MG TAB PO SCH; +BENZ-18 PO; +BIMA01SOL OU; +BISO10TA14 PO; +BISO10TA4 PO; +CICL0.7739 TOP; +GEMF600T5 PO; +IRBE300T7 PO; +JANU100T PO; +LASI20TA3 PO; +LISI10TA22 PO; +METF10004 PO; +NO MED LIST; +PRED10TA2 PO; +SODI1TAB6 PO; +TIMO0.5S39 OU
== END ==
LOC: M LAB REF 18:33
PROVIDERS: ATTEND Nurse Practitioner Family
DX: E83.42 Hypomagnesemia (principal)

== ENCOUNTER 2021-11-17 07:33 | Emergency (ER) | payer MEDICARE ==
[~2021-11-17] VITALS: Ht 175.3 cm; Wt 115.5 kg
[~2021-11-17 07:33] MED LIST changes: -BISO10TA4 PO; +BISO1TAB19 PO
[2021-11-17] MEDS ORDERED: SODIUM BICARBONATE 8.4% INJ 50 ML SYRINGE ONE (07:34)
[2021-11-17] MEDS ORDERED: ATROPINE SULF 1MG/10ML SYRINGE (J0461) ONE (07:34)
[2021-11-17] MEDS ORDERED: AMIODARONE 150MG/3ML INJ (J0282) ONE (07:34)
[2021-11-17] MEDS ORDERED: EPINEPHrine 1MG/10ML SYRINGE 1.5IN ONE (07:34)
[2021-11-17] MEDS ORDERED: LIDOCAINE 2% 5ML JELLY UROJET TOP ONE ×2 (07:40→08:10)
[2021-11-17 07:57] LABS: HEMATOCRIT 41.9 % (42.0-52.0); HEMOGLOBIN 12.7 g/dl (13.5-17.5); MEAN CORPUSCULAR HEMOGLOBIN 31.8 pg (27.0-33.0); MEAN CORPUSCULAR HGB CONC 30.3 g/dl (32.0-36.5); PLATELET COUNT, AUTOMATED 232 10^3/uL (150-450); RED BLOOD COUNT 3.99 10^6/uL (4.30-6.10); WHITE BLOOD COUNT 16.7 10^3/uL (4.0-10.0)
[2021-11-17] MEDS ORDERED: ISOVUE-370 76% 100ML VIAL As Ordered ONE (07:57)
[2021-11-17] MEDS ORDERED: MIDAZOLAM HCL 100 MG in D5W 80 ML IV SCH (08:05)
[2021-11-17] MEDS ORDERED: REFRIGERATOR IV KEYS XX PRN (08:05)
[2021-11-17] MEDS ORDERED: MIDAZOLAM INJ 2MG/2ML VIAL (J2250 PER 1MG) IV STA ×2 (08:05→10:15)
[2021-11-17 08:08] LABS: INR 1.15; PARTIAL THROMBOPLASTIN TIME 33.3 SECONDS (25.9-37.0); PROTHROMBIN TIME 15.1 SECONDS (12.7-14.5)
[2021-11-17] MEDS ORDERED: NS 1,000 ML IV ONE (08:10)
[2021-11-17] MEDS ORDERED: DOPamine 400 MG/500 ML BAG IN D5W (800MCG/ML) (J1265) As Ordered ONE (08:13)
[2021-11-17 08:18] LABS: ATYPICAL LYMPH 10 % (0-5); EOSINOPHILS 3 % (0-3); LYMPHOCYTES 16 % (16-44); MONOCYTES 8 % (0-5); MYELOCYTES 1 % (0-0); NEUTROPHILS 62 % (28-66)
[2021-11-17 08:19] LABS: ANISOCYTOSIS 1+; PLATELET ESTIMATE NORMAL (NORMAL); POIKILOCYTOSIS 1+; POLYCHROMASIA 1+
[2021-11-17 08:23] LABS: ALBUMIN 3.4 GM/DL (3.2-5.2); BILIRUBIN,DIRECT 0.2 MG/DL (0.0-0.2); BILIRUBIN,TOTAL 0.4 MG/DL (0.2-1.0); C REACTIVE PROTEIN QUANTITATIV 0.45 MG/DL (0.00-0.30); CALCIUM LEVEL 9.5 MG/DL (8.8-10.2); CREATININE FOR GFR 1.84 MG/DL (0.70-1.30); GLOMERULAR FILTRATION RATE 39.3 (>49); POTASSIUM SERUM 4.4 MEQ/L (3.5-5.1); TOTAL PROTEIN 6.9 GM/DL (6.4-8.2)
[2021-11-17] MEDS ORDERED: cefTRIAXone SOD 2 GM in D5W MINI-BAG PLUS 50 ML IV ONE (08:30)
[2021-11-17 08:42] LABS: RSV AMPLIFICATION NEGATIVE (NEGATIVE)
[2021-11-17] MEDS ORDERED: NS IV ONE (09:05)
[2021-11-17 09:07] LABS: MAGNESIUM LEVEL 2.7 MG/DL (1.8-2.4)
[2021-11-17] MEDS ORDERED: NOREPINEPHRINE BITARTRATE 8 MG in D5W 492 ML IV SCH (09:10)
[2021-11-17 09:19] LABS: ABG BASE EXCESS -24.5 (-2.0-2.0); ABG HCO3 8.1 MEQ/L (22.0-26.0); ABG O2 SATURATION 80.1 % (95.0-99.0); ABG PARTIAL PRESSURE CO2 52.1 mmHg (35.0-45.0); ABG PARTIAL PRESSURE O2 60.6 mmHg (75.0-100.0); ABG STANDARD HCO3 5.9 MEQ/L (22.0-26.0); ABG TOTAL CO2 9.7 MEQ/L (23.0-31.0)
[2021-11-17 09:22] LABS: ABG pH (ARTERIAL) 6.809 UNITS (7.350-7.450)
[2021-11-17] MEDS ORDERED: SODIUM BICARBONATE 8.4% INJ 50 ML SYRINGE As Ordered ONE ×2 (10:02→10:07)
[2021-11-17 10:11] VITALS: BP 90/50
[2021-11-17] MEDS ORDERED: GLIM2TAB29 PO (10:19)
[2021-11-17] MEDS ORDERED: HYDR-3910 PO (10:19)
[2021-11-17] MEDS ORDERED: EZET10TA21 PO (10:19)
[2021-11-17] MEDS ORDERED: MAGN400T2 PO (11:32)
[2021-11-17] MEDS ORDERED: ATOR80TA59 PO (11:32)
[2021-11-17] MEDS ORDERED: IRBE300T7 PO (11:32)
[2021-11-17] MEDS ORDERED: VITAD400CA PO (11:32)
[2021-11-17] MEDS ORDERED: ASPI81CH33 PO (11:32)
[2021-11-17] MEDS ORDERED: BISO10TA13 PO (11:32)
== END 2021-11-17 14:16 | disposition expired ==
LOC: M ED 07:33
DX: I46.9 Cardiac arrest, cause unspecified (principal); J91.8 Pleural effusion in other conditions classified elsewhere; M50.30 Other cervical disc degeneration, unspecified cervical region; E11.9 Type 2 diabetes mellitus without complications; I10 Essential (primary) hypertension; E78.5 Hyperlipidemia, unspecified; Z79.899 Other long term (current) drug therapy
CPT/HCPCS: 36415; 36600; 51702; 70450; 71045; 71260; 72125; 74177; 80047; 80048; 80076; 81001; 82150; 82803; 83605; 83690; 83735; 84100; 84484; 85025; 85610; 85730; 86140; 86850; 86900; 86901; 87040; 87086; 87631; 93005; 93041; 94760; 96361; 96365; 96375; 99285; J0282; J0461; J0696; J2250; Q9967